=== PATIENT | male | born 1945 | race Caucasian/White ===

== ENCOUNTER 2018-01-17 14:50 | Emergency (ER) | payer OTHER, MEDICARE ==
[2018-01-17 16:25] LABS: ABSOLUTE EOSINOPHILS # (AUTO) 0.4 10^3/uL (0.0-0.6); ABSOLUTE LYMPHOCYTES (AUTO) 1.4 10^3/uL (0.5-4.7); ABSOLUTE MONOCYTES (AUTO) 0.4 10^3/uL (0.1-1.4); BASOPHILS % (AUTO) 0.6 % (0-2); EOSINOPHILS % (AUTO) 6.8 % (0-6); HEMATOCRIT 41.4 % (37.9-51.0); HEMOGLOBIN 13.9 g/dL (13.5-17.0); LYMPHOCYTES % (AUTO) 26.3 % (13-45); MEAN CORPUSCULAR HEMOGLOBIN 29.3 pg (27.0-33.4); MEAN CORPUSCULAR HGB CONC 33.5 g/dL (32.0-36.0); MEAN CORPUSCULAR VOLUME 87 fl (80-97); MONOCYTES % (AUTO) 8.3 % (3-13); PLATELET COUNT 273 10^3/uL (150-450); RED BLOOD COUNT 4.74 10^6/uL (4.35-5.55); RED CELL DISTRIBUTION WIDTH 13.5 % (11.5-14.0); TOTAL CELLS COUNTED % (AUTO) 100 %; WHITE BLOOD COUNT 5.1 10^3/uL (4.0-10.5)
[2018-01-17 16:44] LABS: APPEARANCE,URINE CLEAR; BILIRUBIN,URINE NEGATIVE (NEGATIVE); COLOR,URINE YELLOW; GLUCOSE, URINE NEGATIVE (NEGATIVE); KETONES,URINE NEGATIVE (NEGATIVE); LEUKOCYTE ESTERASE,URINE NEGATIVE (NEGATIVE); NITRITE,URINE NEGATIVE (NEGATIVE); PROTEIN,URINE 30 mg/dL (NEGATIVE); URINE SPECIFIC GRAVITY 1.031; UROBILINOGEN,URINE NEGATIVE mg/dL (<2.0)
[2018-01-17 16:49] LABS: ALANINE AMINOTRANSFERASE 40 U/L (21-72); ALBUMIN 4.5 g/dL (3.5-5.0); ALKALINE PHOSPHATASE 79 U/L (38-126); ANION GAP 12 (5-19); ASPARTATE AMINO TRANSFERASE 32 U/L (17-59); BILIRUBIN,DIRECT 0.3 mg/dL (0.0-0.4); BILIRUBIN,TOTAL 0.3 mg/dL (0.2-1.3); BLOOD UREA NITROGEN 34 mg/dL (7-20); CALCIUM 9.5 mg/dL (8.4-10.2); CARBON DIOXIDE 26 mmol/L (22-30); CHLORIDE 107 mmol/L (98-107); GLUCOSE 136 mg/dL (75-110); LIPASE 121.4 U/L (23-300); POTASSIUM 4.6 mmol/L (3.6-5.0); SODIUM 144.6 mmol/L (137-145); TOTAL PROTEIN 7.2 g/dL (6.3-8.2)
--- NOTE | 2018-01-17 18:36 | ER Document Report ---
ED GI/ - General Mode of Arrival: Ambulatory Information source: Patient TRAVEL OUTSIDE OF THE [place] IN LAST 30 DAYS: No <LULY FLOWERS - Last Filed: 01/17/18 18:37> <MALATHI CAMPO - Last Filed: 01/17/18 20:33> - General Chief Complaint: Nausea/Vomiting Stated Complaint: NAUSEA,VOMITING Time Seen by Provider: 01/17/18 15:10 Notes: Patient is a 72-year-old male who presents to the ER today for many months, up to 6 months, of lower abdominal pain. Patient states that today he started feeling "a pulsing sensation for a few minutes" and his abdomen in the middle and called the [facility], his primary care provider, who stated "go to the ER and get it checked out." Patient thinks that he may have a hernia in the middle of his abdomen because whenever he sits up he gets a bulging in the middle of his abdomen above his bellybutton. He is also had this for a long time. He has been told before that it was a weakness in his abdominal muscle, also have's been told before that it may be a hernia. He denies any nausea, vomiting, diarrhea, fever, chills or other symptoms. (LULY FLOWERS) - Related Data Allergies/Adverse Reactions: anesthesia medicine unknown Allergy (Severe, Uncoded 12/11/14 10:18) stopped breathing Past Medical History - General Information source: Patient - Social History Smoking Status: Former Smoker Drug Abuse: None Family History: Reviewed & Not Pertinent Patient has suicidal ideation: No Patient has homicidal ideation: No - Past Medical History Cardiac Medical History: Reports: Hx Coronary Artery Disease, Hx Hypercholesterolemia, Hx Hypertension - HIGH CHOL Denies: Hx Heart Attack Pulmonary Medical History: Reports: Hx Asthma, Hx Pneumonia - "WALKING" Denies: Hx Bronchitis, Hx COPD Neurological Medical History: Denies: Hx Cerebrovascular Accident, Hx Seizures Endocrine Medical History: Reports: Hx Diabetes Mellitus Type 1, Hx Diabetes Mellitus Type 2 Renal/ Medical History: Denies: Hx Peritoneal Dialysis GI Medical History: Reports: Hx Gastroesophageal Reflux Disease Musculoskeltal Medical History: Reports Hx Arthritis Psychiatric Medical History: Reports: Hx Anxiety, Hx Depression, Hx Post Traumatic Stress Disorder Past Surgical History: Reports: Hx Adenoidectomy, Hx Appendectomy, Hx Tonsillectomy - Immunizations Hx Diphtheria, Pertussis, Tetanus Vaccination: No Hx Pneumococcal Vaccination: 07/15/14 <KRISTIELULY - Last Filed: 01/17/18 18:37> Review of Systems - Review of Systems Constitutional: No symptoms reported EENT: No symptoms reported Cardiovascular: See HPI Respiratory: No symptoms reported Gastrointestinal: See HPI Genitourinary: No symptoms reported Male Genitourinary: No symptoms reported Musculoskeletal: No symptoms reported Skin: No symptoms reported Hematologic/Lymphatic: No symptoms reported Neurological/Psychological: No symptoms reported <LULY FLOWERS - Last Filed: 01/17/18 18:37> Physical Exam <NAVIN FLOWERSANDA - Last Filed: 01/17/18 18:37> <MALATHI CAMPO - Last Filed: 01/17/18 20:33> - Vital signs Vitals: Temp Pulse Resp BP Pulse Ox 98.7 F 53 L 16 143/79 H 98 01/17/18 14:56 01/17/18 14:56 01/17/18 14:56 01/17/18 14:56 01/17/18 14:56 - Notes Notes: PHYSICAL EXAMINATION: GENERAL: Well-appearing and in no acute distress. HEAD: Atraumatic, normocephalic. EYES: Pupils equal round and reactive to light, extraocular movements intact, sclera anicteric, conjunctiva are normal. NECK: Normal range of motion, supple without lymphadenopathy LUNGS: CTAB and equal. No wheezes rales or rhonchi. HEART: Regular rate and rhythm without murmurs ABDOMEN: Soft, rectus sheath bulging on flexion only, no tenderness. No guarding , no rebound BACK: no vertebral tenderness, normal ROM GI/: no CVA tenderness EXTREMITIES: Normal range of motion, no pitting edema. No cyanosis. NEUROLOGICAL: Cranial nerves grossly intact. Normal sensory/motor exams. PSYCH: Normal mood, normal affect. SKIN: Warm, Dry, normal turgor, no rashes or lesions noted (LULY FLOWERS) Course - Laboratory Result Diagrams: 01/17/18 16:00 01/17/18 16:00 <LULY FLOWERS - Last Filed: 01/17/18 18:37> - Laboratory Result Diagrams: 01/17/18 16:00 01/17/18 16:00 - Diagnostic Test Radiology reviewed: Image reviewed, Reports reviewed - No acute abnormality of the abdomen and pelvis. Fatty infiltration of the liver, left renal cyst. <MALATHI CAMPO - Last Filed: 01/17/18 20:33> - Re-evaluation Re-evalutation: 01/17/18 20:31 The patient is nontoxic appearing with stable vitals. Patient has unremarkable lab work for significant finding. He had a CT of the abdomen and pelvis which shows fatty infiltration of the liver with a left renal cyst, no acute findings per the radiologist. This point the patient can be discharged home with [facility]. Follow -up sooner for worsening pain, high fever, persistent vomiting, or for any further concerns. The patient is noted to have elevated blood pressure during today's emergency department visit. The patient was informed of this finding. The patient was instructed that this may be related to pre-hypertension and requires further evaluation with a primary care provider. The patient has no hypertensive symptoms at this time. The patient's emergency department workup and current diagnosis were explained to the patient and or family. Follow-up instructions were provided. Medications if prescribed were discussed. Instructions for when to return to the emergency department including specific worrisome symptoms were discussed with the patient and/or family. (MALATHI CAMPO) - Vital Signs Vital signs: Temp Pulse Resp BP Pulse Ox 98.7 F 53 L 16 143/79 H 98 01/17/18 14:56 01/17/18 14:56 01/17/18 14:56 01/17/18 14:56 01/17/18 14:56 - Laboratory Laboratory results interpreted by ok: 01/17/18 01/17/18 01/17/18 16:00 16:00 16:24 Eosinophils % 6.8 H BUN 34 H Glucose 136 H Urine Protein 30 H Discharge <LULY FLOWERS - Last Filed: 01/17/18 18:37> <MALATHI CAMPO - Last Filed: 01/17/18 20:33> - Discharge Clinical Impression: Abdominal pain Qualifiers: Abdominal location: unspecified location Qualified Code(s): R10.9 - Unspecified abdominal pain Condition: Stable Disposition: HOME, SELF-CARE Instructions: Abdominal Pain ([facility]) Additional Instructions: [facility]. Follow-up sooner for worsening symptoms, high fever, persistent vomiting, or for any further concerns. Your blood pressure was elevated during today's visit. Have this rechecked with your doctor. Forms: Elevated Blood Pressure, Smoking Cessation Education Referrals: [facility] [Provider Group] - Follow up as needed
--- NOTE | 2018-01-17 20:24 | RADIOLOGY REPORT (SQ) ---
EXAM DESCRIPTION: CT ABD/PELVIS WITH IV ONLY COMPLETED DATE/TIME: 01/17/2018 7:23 pm REASON FOR STUDY: hernia? COMPARISON: None. TECHNIQUE: CT scan of the abdomen and pelvis performed using helical scanning technique with dynamic intravenous contrast injection. No oral contrast. Images reviewed with lung, soft tissue, and bone windows. Reconstructed coronal and sagittal MPR images reviewed. Delayed images for evaluation of the urinary system also acquired. All images stored on PACS. All CT scanners at this facility use dose modulation, iterative reconstruction, and/or weight based d osing when appropriate to reduce radiation dose to as low as reasonably achievable (ALARA). [facility]: Dose Right [facility]: CareDose [facility]: Dose Right [facility]: Teradose 4D [facility]: Sportistic CONTRAST TYPE AND DOSE: contrast/concentration: Isovue 370.00 mg/ml; Total Contrast Delivered: 100.0 ml; Total Saline Delivered: 40.0 ml RENAL FUNCTION: BUN 34 creatinine 0.99. RADIATION DOSE: CT Rad equipment meets quality standard of care and radiation dose reduction techniq ues were employed. CTDIvol: 17.0 - 18.8 mGy. DLP: 2006 mGy-cm.. LIMITATIONS: None. FINDINGS: LOWER CHEST: No significant findings. No nodules or infiltrates. LIVER: Hepatomegaly. Diffuse fatty infiltration. No masses. No dilated ducts. SPLEEN: Normal size. No focal lesions. PANCREAS: No masses. No significant calcifications. No adjacent inflammation or peripancreatic fluid collections. Pancreatic duct not dilated. GALLBLADDER: No identified stones by CT criteria. No inflammatory changes to suggest cholecystitis. ADRENAL GLANDS: No significant masses or asymmetry. RIGHT KIDNEY AND URETER: No solid masses. No significant calcifications. No hydronephrosis or hyd roureter. LEFT KIDNEY AND URETER: Cortical cysts. No solid masses. No significant calcifications. No hydro nephrosis or hydroureter. AORTA AND VESSELS: No aneurysm. No dissection. Renal arteries, SMA, celiac without stenosis. RETROPERITONEUM: No retroperitoneal adenopathy, hemorrhage or masses. BOWEL AND PERITONEAL CAVITY: No masses or inflammatory changes. No free fluid or peritoneal masses. APPENDIX: Normal. PELVIS: No mass. No free fluid. Normal bladder. ABDOMINAL WALL: No masses. No hernias. BONES: No significant or acute findings. OTHER: No other significant finding. IMPRESSION: 1. HEPATOMEGALY. DIFFUSE FATTY INFILTRATION OF THE LIVER. 2. CORTICAL CYST IN THE LEFT KIDNEY. 3. NO OTHER SIGNIFICANT OR ACUTE FINDING IN THE ABDOMEN OR PELVIS ON CT SCAN WITH IV CONTRAST. TECHNICAL DOCUMENTATION: JOB ID: [id number] Quality ID # [id number]: Final reports with documentation of one or more dose reduction techniques (e.g., Au tomated exposure control, adjustment of the mA and/or kV according to patient size, use of iterative reconstruction technique) 2010 [employer]- All Rights Reserved Reading location - IP/workstation name: [email or web address]
[2018-01-17 20:57] VITALS: BP 143/74
== END 2018-01-17 21:11 | disposition home or self-care (01) ==
LOC: ER 14:50
DX: R11.2 Nausea with vomiting, unspecified (principal); I25.10 Atherosclerotic heart disease of native coronary artery without angina pectoris; E78.00 Pure hypercholesterolemia, unspecified; I10 Essential (primary) hypertension; E11.9 Type 2 diabetes mellitus without complications
CPT/HCPCS: 36415; 74177; 80053; 81001; 83690; 85025; 99284

== ENCOUNTER → 2018-10-10 | Outpatient (CLI) | payer MEDICARE, OTHER ==
--- NOTE | 2018-10-10 13:05 | RADIOLOGY REPORT (SQ) ---
EXAM DESCRIPTION: CHEST PA/LATERAL COMPLETED DATE/TIME: 10/10/2018 12:58 pm REASON FOR STUDY: PRE-OP COMPARISON: None. TECHNIQUE: Frontal and lateral radiographic views of the chest acquired. NUMBER OF VIEWS: Two view. LIMITATIONS: None. FINDINGS: LUNGS AND PLEURA: No opacities, masses or pneumothorax. No pleural effusion. MEDIASTINUM AND HILAR STRUCTURES: No masses or contour abnormalities. HEART AND VASCULAR STRUCTURES: Heart normal size. No evidence for failure. BONES: No acute findings. HARDWARE: None in the chest. OTHER: No other significant finding. IMPRESSION: NO SIGNIFICANT RADIOGRAPHIC FINDING IN THE CHEST. TECHNICAL DOCUMENTATION: JOB ID: [id number] [employer]- All Rights Reserved Reading location - IP/workstation name: [email or web address]
--- NOTE | 2018-10-10 13:39 | EKG REPORT ---
SEVERITY:- BORDERLINE ECG - SINUS RHYTHM ATRIAL PREMATURE COMPLEX BORDERLINE T ABNORMALITIES, INFERIOR LEADS : Confirmed by: Mike Allred MD 10-Oct-2018 13:38:52
[2018-10-10 13:44] LABS: APPEARANCE,URINE SLIGHTLY-CLOUDY; BILIRUBIN,URINE NEGATIVE (NEGATIVE); COLOR,URINE YELLOW; GLUCOSE, URINE NEGATIVE (NEGATIVE); KETONES,URINE NEGATIVE (NEGATIVE); LEUKOCYTE ESTERASE,URINE NEGATIVE (NEGATIVE); NITRITE,URINE NEGATIVE (NEGATIVE); PROTEIN,URINE NEGATIVE (NEGATIVE); URINE SPECIFIC GRAVITY 1.014; UROBILINOGEN,URINE NEGATIVE mg/dL (<2.0)
[2018-10-10 13:45] LABS: ABSOLUTE EOSINOPHILS # (AUTO) 0.5 10^3/uL (0.0-0.6); ABSOLUTE LYMPHOCYTES (AUTO) 1.2 10^3/uL (0.5-4.7); ABSOLUTE MONOCYTES (AUTO) 0.5 10^3/uL (0.1-1.4); ABSOLUTE NEUT (AUTO) 4.7 10^3/uL (1.7-8.2); BASOPHILS % (AUTO) 0.4 % (0-2); EOSINOPHILS % (AUTO) 6.9 % (0-6); HEMATOCRIT 38.5 % (37.9-51.0); HEMOGLOBIN 13.2 g/dL (13.5-17.0); LYMPHOCYTES % (AUTO) 17.9 % (13-45); MEAN CORPUSCULAR HEMOGLOBIN 29.3 pg (27.0-33.4); MEAN CORPUSCULAR HGB CONC 34.3 g/dL (32.0-36.0); MEAN CORPUSCULAR VOLUME 86 fl (80-97); MONOCYTES % (AUTO) 7.6 % (3-13); PLATELET COUNT 278 10^3/uL (150-450); RED CELL DISTRIBUTION WIDTH 14.6 % (11.5-14.0); SEGMENTED NEUTROPHILS % (AUTO) 67.2 % (42-78); TOTAL CELLS COUNTED % (AUTO) 100 %; WHITE BLOOD COUNT 6.9 10^3/uL (4.0-10.5)
[2018-10-10 13:58] LABS: ANION GAP 15 (5-19); BLOOD UREA NITROGEN 35 mg/dL (7-20); CALCIUM 9.6 mg/dL (8.4-10.2); CARBON DIOXIDE 25 mmol/L (22-30); CHLORIDE 104 mmol/L (98-107); GLUCOSE 173 mg/dL (75-110); POTASSIUM 4.9 mmol/L (3.6-5.0); SODIUM 143.6 mmol/L (137-145)
== END ==
LOC: OD 12:28
PROVIDERS: ATTEND Orthopaedic Surgery
DX: Z01.810 Encounter for preprocedural cardiovascular examination (principal); Z01.812 Encounter for preprocedural laboratory examination; Z01.818 Encounter for other preprocedural examination; E11.9 Type 2 diabetes mellitus without complications
CPT/HCPCS: 36415; 71046; 80048; 81001; 83036; 85025; 93005; 93010

== ENCOUNTER → 2018-10-25 | Outpatient (CLI) | payer MEDICARE ==
[~2018-10-25] MED LIST: REGADENOSON INJ 0.4 MG/5 ML DISP.SYRIN IV ONE
--- NOTE | 2018-10-26 22:51 | XCELERA REPORT ---
[address] [address] Transthoracic Echocardiogram Report Name: LUCIO JOHNSON Age: 73 yrs Gender: Male : 1945 Patient Status: Preadmit Patient Location: RAD Study Date: 10/25/2018 09:41 AM Height: 71 in Weight: 237 lb BSA: 2.3 m2 Procedure: A two-dimensional transthoracic echocardiogram with color flow and Doppler was performed. Study Quality: Fair. Reason For Study: SOB History: ORTNESS OF BREATH / PRE-OP. Ordering Physician: JAZZMINE MORALES Performed By: Mundo Haynes Interpretation Summary The left ventricle is normal in size. There is normal left ventricular wall thickness. LV EF is 65% Left ventricular systolic function is normal. Doppler measurements suggest normal left ventricular diastolic function There is no thrombus. There is no ventricular septal defect visualized. The right ventricle is normal size. There is mild right ventricular hypertrophy. The right ventricular systolic function is normal. The right atrium is normal. The left atrial size is normal. The interatrial septum is intact with no evidence for an atrial septal defect. There is no evidence of mitral valve prolapse. There is no vegetation seen on the mitral valve. There is no mitral valve stenosis. There is a trace amount of mitral regurgitation There is no aortic valvular vegetation. There is mild aortic stenosis There is a peak gradient of 22 mm of Hg. There is no LVOT obstruction. No hemodynamically significant valvular aortic stenosis. There is a trace to mild amount of aortic regurgitation There is no tricuspid stenosis. There is a mild amount of tricuspid regurgitation There is moderate pulmonary hypertension by echo rvsp IS 48 TO 53 MM OF hG , WITH ra MEAN OF 5 TO 10. There is no pulmonic valvular regurgitation. The aortic root is normal size. The inferior vena cava appeared normal and decreased > 50% with respiration (RAP 5-10 mmHg) There is no pericardial effusion. MMode/2D Measurements & Calculations RVDd: 3.3 cm LVIDd: 5.4 cm FS: 45.1 % Ao root diam: 3.0 cm IVSd: 0.96 cm LVIDs: 3.0 cm EDV(Teich): 142.4 ml Ao root area: 7.2 cm2 LVPWd: 1.1 cm ESV(Teich): 34.2 ml LA dimension: 3.1 cm EF(Teich): 76.0 % Doppler Measurements & Calculations MV E max eloisa: MV P1/2t max eloisa: Ao V2 max: AI max eloisa: 82.5 cm/sec 89.9 cm/sec 232.7 cm/sec 473.0 cm/sec MV A max eloisa: MV P1/2t: 103.1 msec Ao max PG: AI max P.7 cm/sec MVA(P1/2t): 2.1 cm2 21.7 mmHg 89.5 mmHg MV E/A: 1.2 MV dec slope: AI dec slope: 225.0 cm/sec2 255.4 cm/sec2 AI P1/2t: MV dec time: 615.7 msec 0.23 sec LV V1 max PG: PA V2 max: TR max eloisa: AV P1/2t-pr_phl: 6.1 mmHg 97.7 cm/sec 327.3 cm/sec 616.0 msec LV V1 max: PA max P.8 mmHg TR max P.4 cm/sec 42.8 mmHg LV dP/dt: 1818 mmHg/s MV P1/2t-pr_phl: 103.1 msec Left Ventricle The left ventricle is normal in size. There is normal left ventricular wall thickness. LV EF is 65%. Left ventricular systolic function is normal. Doppler measurements suggest normal left ventricular diastolic function. The left ventricular wall motion is normal. There is no thrombus. There is no ventricular septal defect visualized. Right Ventricle The right ventricle is normal size. There is mild right ventricular hypertrophy. The right ventricular systolic function is normal. Atria The right atrium is normal. The left atrial size is normal. The interatrial septum is intact with no evidence for an atrial septal defect. Mitral Valve There is no evidence of mitral valve prolapse. There is no vegetation seen on the mitral valve. There is no mitral valve stenosis. There is a trace amount of mitral regurgitation. Aortic Valve There is no aortic valvular vegetation. There is mild aortic stenosis. There is a peak gradient of 22 mm of Hg. There is no LVOT obstruction. No hemodynamically significant valvular aortic stenosis. There is a trace to mild amount of aortic regurgitation. Tricuspid Valve There is no tricuspid stenosis. There is a mild amount of tricuspid regurgitation. There is moderate pulmonary hypertension by echo. rvsp IS 48 TO 53 MM OF hG , WITH ra MEAN OF 5 TO 10. Pulmonic Valve There is no pulmonic valvular stenosis. There is no pulmonic valvular regurgitation. Great Vessels The aortic root is normal size. The inferior vena cava appeared normal and decreased > 50% with respiration (RAP 5-10 mmHg). Effusions There is no pericardial effusion. : JAZZMINE MORALES > Jazzmine Morales
--- NOTE | 2018-10-26 23:04 | DRAGON STRESS TEST REPORT ---
Intravenous Lexiscan Cardiolite stress test using single photon emmision computerized tomography. Date of procedure: 10/25/2018.Ordering Provider: Dr. Jazzmine Gomez. Patient's status: Out Patient. Indication: Shortness of breath, and preoperative cardiac risk assessment. Coronary risk factors: Age, diabetes mellitus, hypertension, and dyslipidemia. Resting EKG: Sinus Rhythm. Possible old septal UT versus normal Q's in V1 V2 leads. Nonspecific ST-T changes lateral leads. Stress EKG: No changes of ischemia. The patient had no chest pain or discomfort, and there were no arrhythmias seen. There is no increased shortness of breath or wheezing. Reason for termination: Protocol. Conclusions: Normal EKG and hemodynamic response to IV Lexiscan. Nuclear data: At rest the patient was given 14.61 millicuries of technetium 99m sestamibi injected intravenously. As per protocol rest non gated SPECT images were obtained. Subsequently the patient was given intravenous Lexiscan at a dose of 0.4 mg in 5 mL intravenously, followed by flush with normal saline. Subsequently the stress dose of 43.0 millicuries of technetium 99m sestamibi was injected intravenously. As per protocol stress gated images were obtained. Nuclear interpretation: Review of images showed that this is a very poor quality study, and very difficult to interpret inferior wall perfusion due to severe liver and bowel contamination artifact of the inferior wall, which is more pronounced in the stress images compared to rest images. Probably all segments of the myocardium had normal perfusion at rest, and normal perfusion post stress with IV Lexiscan. But cannot definitely exclude mild scar in the inferior wall with mild reversible ischemia. But still my opinion is that there is no ischemia or UT or scar, and inferior wall changes seen are due to contamination artifact as mentioned above. Probably all segments of the myocardium had normal motion, contraction, and thickening by gated study. T. I D. ratio was normal at 1.15. There is no transient ischemic calcification of the left ventricle. Computer read rest, and stress left ventricular ejection fraction were 52 %, and 51 %, respectively. Visually both the stress and rest ejection fractions were normal, and greater than 55%. Conclusion: 1. There is probably no scintigraphic evidence of Lexiscan induced myocardial ischemia. 2. There is probably no scintigraphic evidence of myocardial infarction/scar. Recommend echo for wall motion information, and for accurate LV ejection fraction. Correlate clinically. Aggressive risk factor modification, and treatment of comorbidities. MTDD
== END ==
LOC: RAD 07:01
PROVIDERS: ATTEND Specialist
DX: R06.02 Shortness of breath (principal)
CPT/HCPCS: 93306; 93017; 78452; A9500; J2785; Q9969

== ENCOUNTER 2018-10-30 05:40 | Inpatient (IN) | payer OTHER, MEDICARE ==
[~2018-10-30 05:40] MED LIST changes: +BUPIVACAINE INJ/PF LIPOSOME/PF 266 MG/20 ML SDV IJ PRN; +CEFAZOLIN INJ 1 GM VIAL IV PRN; +CEFAZOLIN INJ 1 GM VIAL ONE; +IBUPROFEN 800 MG/NS 250 ML IV PRN; +LACTATED RINGERS 1000 ML IV PRN; +LANSOPRAZOLE 15 MG TAB.RAP.DR ONE; +LANSOPRAZOLE 15 MG TAB.RAP.DR PO PRN; +LIDOCAINE 0.5% INJ-PF (5 MG/ML) 50 ML SDV SUBCUT PRN; +OXYCODONE HCL SR 10 MG TABLET PO ONE; +OXYCODONE HCL SR 10 MG TABLET PO PRN; -REGADENOSON INJ 0.4 MG/5 ML DISP.SYRIN IV ONE; +VANCOMYCIN HCL 1,000 MG in DEXTROSE 5%-WATER 250 ML IV SCH
[2018-10-30] MEDS ORDERED: LIDOCAINE 2% INJ-PF (20 MG/ML) 10 ML AMPUL ONE (06:32)
[2018-10-30] MEDS ORDERED: ONDANSETRON HCL INJ/PF 4 MG/2 ML SDV ONE (06:32)
[2018-10-30] MEDS ORDERED: ACETAMINOPHEN 1,000 MG/100 ML RTUPB IV ONE (06:32)
[2018-10-30] MEDS ORDERED: PROPOFOL INJ 200 MG/20 ML VIAL IV ONE (06:32)
[2018-10-30] MEDS ORDERED: DEXAMETHASONE SOD PHOSPHATE INJ 4 MG/1 ML VIAL ONE (06:32)
[2018-10-30] MEDS ORDERED: MIDAZOLAM 2 MG/2 ML INJ ONE (06:32)
[2018-10-30] MEDS ORDERED: FENTANYL CITRATE INJ/PF 100 MCG/2 ML AMPUL ONE (06:32)
[2018-10-30] MEDS ORDERED: BUPIVACAINE HCL/DEX-WATER/PF 15 MG/2 ML AMPULE ONE (06:34)
[2018-10-30 06:51] LABS: POTASSIUM 4.7 mmol/L (3.6-5.0)
[2018-10-30] MEDS ORDERED: THROMBIN (BOVINE) TOPICAL 20000 UNIT VIAL ONE (07:10)
[2018-10-30] MEDS ORDERED: BUPIVACAINE HCL 0.25% /EPINEPHRINE INJ/PF 30 ML SDV ONE (07:11)
[2018-10-30] MEDS ORDERED: THROMBIN (BOVINE) TOPICAL 5000 UNIT VIAL ONE (07:11)
[2018-10-30] MEDS ORDERED: MORPHINE SULFATE 10 MG/ML INJ IV PRN ×5 (07:55→08:44)
[2018-10-30] MEDS ORDERED: MEPERIDINE HCL/PF INJ 25 MG/1 ML DISP.SYRIN IV PRN (07:55)
[2018-10-30] MEDS ORDERED: DIPHENHYDRAMINE HCL 50 MG/ML VIAL IV PRN ×2 (07:55→08:44)
[2018-10-30] MEDS ORDERED: PROMETHAZINE HCL INJ 25 MG/1 ML VIAL IV PRN ×2 (07:55)
[2018-10-30] MEDS ORDERED: FENTANYL CITRATE INJ/PF 100 MCG/2 ML AMPUL IV PRN ×3 (07:55)
[2018-10-30] MEDS ORDERED: ONDANSETRON HCL INJ/PF 4 MG/2 ML SDV IV PRN ×2 (07:55→08:44)
--- NOTE | 2018-10-30 08:42 | Operative Report ---
Operative Report DATE OF SURGERY: 10/30/18 PREOPERATIVE DIAGNOSIS: Right knee arthritis OPERATION: Right knee arthroplasty SURGEON: [place] ANESTHESIA: Spinal TISSUE REMOVED OR ALTERED: Bone to pathology ESTIMATED BLOOD LOSS: 100 PROCEDURE: Implants used: Femur: Gregg triathlon size 6 CR femur Tibia: 6 tibia Tibial liner: 11 mm CS insert Patella: 38 mm oval patella Procedure with the patient supine on the operating table the right the limb is prepped and draped in a sterile fashion. The limb was elevated for exsanguination and the tourniquet inflated to 280 torr. A standard midline median parapatellar approach the knee is taken. Access is gained to the femoral canal through the intercondylar notch. Intramedullary alignment instrumentation used to resect 10 mm of distal femur in 5 of valgus. Sizing guide indicated a size 6 femur. Appropriate cutting jig is then used to fashion anterior posterior and chamfer cuts. A trial reduction femurs performed and this is judged to be adequate. Attention was next turned to the tibia. Using an extra medullary alignment system 9 millimeters was resected off the lateral tibial plateau. This is sized to a size 6 tibia. A trial reduction was now performed with a 6 femur and a 6 tibia using a 11 millimeters spacer. It is full extension and central patellofemoral tracking. The articular surface the patella was next resected using an oscillating saw. All trial implants were removed. Polymethylmethacrylate is mixed and used to cement the above implants in place. On adequate curing the cement excess cement was removed the tourniquet was deflated hemostasis obtained the wound is then closed in layers using interrupted Vicryl followed by agnes. A sterile compressive dressing was applied and the patient returned to recovery room in satisfactory condition.
[2018-10-30] MEDS ORDERED: ACETAMINOPHEN 325 MG TABLET PO PRN (08:44)
[2018-10-30] MEDS ORDERED: RINGERS SOLUTION,LACTATED 1,000 ML IV PRN (08:44)
[2018-10-30] MEDS ORDERED: ZOLPIDEM TARTRATE 5 MG TABLET PO PRN (08:44)
[2018-10-30] MEDS ORDERED: MAG HYDROX/AL HYDROX/SIMETH SUSP 30 ML UDCUP PO PRN (08:44)
[2018-10-30] MEDS ORDERED: ONDANSETRON 4 MG TAB.RAPDIS PO PRN (08:44)
[2018-10-30] MEDS ORDERED: TRANEXAMIC ACID INJ/PF 1,000 MG/10 ML SDV IV ONE ×2 (09:18→10:00)
[2018-10-30] MEDS ORDERED: DEXTROSE 50%-WATER SYRINGE 25 GM/50 ML DOSE IV PRN (09:41)
[2018-10-30] MEDS ORDERED: DEXTROSE 50%-WATER SYRINGE 12.5 GM/25 ML DOSE IV PRN (09:41)
[2018-10-30] MEDS ORDERED: GLUCAGON,HUMAN RECOMB 1 MG INJ IM PRN (09:41)
[2018-10-30] MEDS ORDERED: DEXTROSE 40% GEL 15 GM TUBE PO PRN (09:41)
[2018-10-30] MEDS ORDERED: DEXTROSE 40% GEL 15 GM TUBE X 2 PO PRN (09:41)
--- NOTE | 2018-10-30 09:58 | RADIOLOGY REPORT (SQ) ---
EXAM DESCRIPTION: KNEE RIGHT 2 VIEWS COMPLETED DATE/TIME: 10/30/2018 9:36 am REASON FOR STUDY: Post OP -Long Cassette in PACU M17.11 UNILATERAL PRIMARY OSTEOARTHRITIS, RIGHT KN EE COMPARISON: None. NUMBER OF VIEWS: Two views portable right knee TECHNIQUE: Digital radiographic images of the right knee post-procedure. LIMITATIONS: None. FINDINGS: BONES: No worrisome or unexpected findings post-procedure. DEVICE: Right total knee replacement with patellar resurfacing SOFT TISSUES: No worrisome findings. Expected postoperative soft tissue changes. IMPRESSION: SATISFACTORY POSTOPERATIVE RIGHT KNEE. TECHNICAL DOCUMENTATION: JOB ID: [id number] [employer]- All Rights Reserved Reading location - IP/workstation name: [email or web address]
[2018-10-30] MEDS ORDERED: MULTIVIT WITH IRON MINERALS PO SCH (10:00)
[2018-10-30] MEDS ORDERED: OMEPRAZOLE 20 MG PO SCH (10:00)
[2018-10-30] MEDS ORDERED: MODAFINIL 200 MG PO SCH (10:00)
[2018-10-30] MEDS ORDERED: ATORVASTATIN CALCIUM 10 MG TABLET PO SCH (10:00)
[2018-10-30] MEDS: ALLOPURINOL 100 MG TABLET PO SCH (10:44)
[2018-10-30] MEDS: TAMSULOSIN HCL 0.4 MG CAP.SR.24H PO SCH (10:44)
[2018-10-30] MEDS: SENNOSIDES/DOCUSATE 8.6-50 MG 1 EACH TABLET PO SCH ×2 (10:44→17:54)
[2018-10-30] MEDS: ASPIRIN 81 MG TABLET, ENT COATED PO SCH (10:44)
[2018-10-30] MEDS: PRENATAL VITAMIN W DHA CAPSULE PO SCH (10:44)
[2018-10-30] MEDS: OXYCODONE HCL SR 10 MG TABLET PO SCH ×2 (10:45→21:17)
[2018-10-30] MEDS: FUROSEMIDE 20 MG TABLET PO SCH (10:45)
[2018-10-30] MEDS: AMLODIPINE BESYLATE 10 MG TABLET PO SCH (10:46)
[2018-10-30] MEDS: DONEPEZIL HCL 5 MG TABLET PO SCH (10:47)
[2018-10-30] MEDS: FINASTERIDE 5 MG TABLET PO SCH (10:48)
[2018-10-30] MEDS: MODAFINIL 100 MG TABLET PO SCH (12:32)
[2018-10-30] MEDS: LISINOPRIL 10 MG TABLET PO SCH (12:32)
[2018-10-30] MEDS: INSULIN LISPRO 100 UNIT/ML 3 ML VIAL SUBCUT PRN ×3 (12:33→22:00)
[2018-10-30] MEDS ORDERED: PHENYLEPHRINE HCL INJ/PF 10 MG/1 ML SDV ONE (13:52)
[2018-10-30] MEDS: IBUPROFEN 800 MG in NORMAL SALINE 250 ML IV SCH ×2 (15:01→21:18)
[2018-10-30] MEDS: GABAPENTIN 400 MG CAPSULE PO SCH ×2 (15:01→21:18)
[2018-10-30] MEDS: OXYCODONE HCL IR 5 MG TABLET PO PRN (17:54)
[2018-10-30] MEDS ORDERED: VANCOMYCIN HCL 1,000 MG in DEXTROSE 5%-WATER 250 ML IV ONE (21:00)
[2018-10-30] MEDS ORDERED: GEMFIBROZIL 600 MG TABLET PO SCH (22:00)
[2018-10-31] MEDS: IBUPROFEN 800 MG in NORMAL SALINE 250 ML IV SCH ×2 (05:17→13:39)
[2018-10-31] MEDS: GABAPENTIN 400 MG CAPSULE PO SCH ×2 (05:18→13:36)
[2018-10-31] MEDS ORDERED: LANSOPRAZOLE 30 MG TAB.RAP.DR PO SCH (06:00)
[2018-10-31 07:17] LABS: HEMATOCRIT 31.3 % (37.9-51.0); HEMOGLOBIN 10.5 g/dL (13.5-17.0); MEAN CORPUSCULAR HEMOGLOBIN 28.7 pg (27.0-33.4); MEAN CORPUSCULAR HGB CONC 33.4 g/dL (32.0-36.0); MEAN CORPUSCULAR VOLUME 86 fl (80-97); PLATELET COUNT 290 10^3/uL (150-450); RED BLOOD COUNT 3.64 10^6/uL (4.35-5.55); RED CELL DISTRIBUTION WIDTH 14.5 % (11.5-14.0); WHITE BLOOD COUNT 12.2 10^3/uL (4.0-10.5)
--- NOTE | 2018-10-31 07:40 | PDOC DISCHARGE SUMMARY ---
General - Admit/Disc Date/PCP Admission Date/Primary Care Provider: 10/30/18 05:40 KOBE RALPH Discharge Date: 10/31/18 - Discharge Diagnosis (1) Arthritis of right knee Is this a current diagnosis for this admission?: Yes - Additional Information Resuscitation Status: Full Code Home Medications: Aspirin [Aspirin EC] 81 mg PO DAILY 03/28/13 Atorvastatin Calcium [Lipitor 10 mg Tablet] 20 mg PO DAILY 03/28/13 Furosemide [Lasix 20 mg Tablet] 20 mg PO DAILY 03/28/13 Gabapentin [Neurontin 400 mg Capsule] 400 mg PO TID 03/28/13 Loratadine [Loratadine Allergy] 10 mg PO DAILY 03/28/13 Amlodipine Besylate 10 mg PO DAILY 07/10/13 Clotrimazole 1% Topical [Lotrimin 1% Topical Solution] 1 applic TP ASDIR PRN Ferrous Fumarate [Iron] 65 mg PO DAILY 07/10/13 Metformin HCl [Glucophage 500 Mg Tablet] 1,000 mg PO BID 07/10/13 Tamsulosin HCl 0.4 mg PO QHS 07/10/13 Fluticasone Propionate [Flonase Nasal Blairs 50 Mcg/Blairs 16 gm] 2 sprays NASL DAILY 12/10/14 Allopurinol [Zyloprim 100 mg Tablet] 100 mg PO DAILY 10/19/18 Cyanocobalamin (Vitamin B-12) [Vitamin B12] 1,000 mcg PO DAILY 10/19/18 Donepezil HCl [Aricept 5 mg Tablet] 5 mg PO DAILY 10/19/18 Finasteride [Proscar 5 mg Tablet] 5 mg PO DAILY 10/19/18 Fluoxetine HCl [Prozac 20 mg Capsule] 40 mg PO QAM 10/19/18 Gemfibrozil 300 mg PO QHS 10/19/18 Lisinopril [Prinivil 40 mg Tablet] 40 mg PO DAILY 10/19/18 Multivit with Iron,Minerals [Spectravite Senior] 1 tab PO DAILY 10/19/18 Testosterone [Androgel] 1 applic TOP DAILY 10/19/18 Diclofenac Sodium [Voltaren] 75 mg PO BID 10/30/18 Metoprolol Succinate [Toprol Xl 25 mg Tab.sr] 25 mg PO DAILY 10/30/18 Montelukast Sodium [Singulair 10 mg Tablet] 10 mg PO QHS 10/30/18 Omeprazole 20 mg PO DAILY 10/30/18 History of Present Illness History of Present Illness: LUCIO JOHNSON is a 73 year old male 73-year-old white male with progressive right knee pain and functional disability second osteoarthritis. Patient is admitted for elective right knee arthroplasty. Hospital Course Hospital Course: Patient is a mid through the operating where he undergoes uncomplicated right knee arthroplasty. Is returned to floor in satisfactory condition. He ambulates 200 feet with physical therapy on the day of surgery. Compressive dressing is removed on postop day 1. Underlying op site is clean dry and intact. There is minimal pedal edema. Distal neurovascular examination is intact. Physical Exam Vital Signs: Temp Pulse Resp BP Pulse Ox 36.7 C 57 L 17 102/60 93 10/30/18 23:40 10/30/18 23:40 10/30/18 23:40 10/30/18 23:40 10/30/18 23:40 Intake & Output 10/30/18 10/31/18 11/01/18 06:59 06:59 06:59 Intake Total 0 6745 Output Total 2975 Balance 0 3770 Weight 112.3 kg General appearance: PRESENT: no acute distress, mild distress, well-developed, well-nourished Head exam: PRESENT: normocephalic Respiratory exam: PRESENT: unlabored Cardiovascular exam: PRESENT: RRR Pulses: PRESENT: +1 pedal pulses bilateral Vascular exam: PRESENT: normal capillary refill GI/Abdominal exam: PRESENT: soft Rectal exam: PRESENT: deferred Extremities exam: PRESENT: other - Right lower extremity OpSite is clean dry and intact. There is minimal pedal edema. Distal neurovascular examination is intact. Neurological exam: PRESENT: alert, awake, oriented to person, oriented to place , oriented to time, oriented to situation. ABSENT: motor sensory deficit Psychiatric exam: PRESENT: appropriate affect, normal mood. ABSENT: homicidal ideation, suicidal ideation Skin exam: PRESENT: dry, intact, warm. ABSENT: cyanosis, rash Results Laboratory Results: 10/31/18 06:41 10/31/18 06:41 WBC 12.2 H RBC 3.64 L Hgb 10.5 L Hct 31.3 L MCV 86 MCH 28.7 MCHC 33.4 RDW 14.5 H Plt Count 290 Impressions: Knee X-Ray 10/30/18 08:46 IMPRESSION: SATISFACTORY POSTOPERATIVE RIGHT KNEE. Status: Imported from PACS Qualifiers - * PATIENT BEING DISCHARGED WITH ANY OF THE FOLLOWING DIAGNOSIS: No VTE patient discharged on overlapping Therapy?: Yes Plan Discharge Plan: Patient to be discharged home with home health services and DME. Follow-up Dr. Mart Chand [place] for surgery in 2 weeks for staple removal.
[2018-10-31 07:47] LABS: ANION GAP 11 (5-19); BLOOD UREA NITROGEN 29 mg/dL (7-20); CALCIUM 8.8 mg/dL (8.4-10.2); CARBON DIOXIDE 23 mmol/L (22-30); CHLORIDE 107 mmol/L (98-107); GLUCOSE 169 mg/dL (75-110); SODIUM 140.8 mmol/L (137-145)
[2018-10-31] MEDS: INSULIN LISPRO 100 UNIT/ML 3 ML VIAL SUBCUT PRN ×2 (07:47→12:33)
[2018-10-31] MEDS: OXYCODONE HCL IR 5 MG TABLET PO PRN (07:50)
[2018-10-31] MEDS ORDERED: FLUOXETINE HCL 20 MG CAPSULE PO SCH (08:00)
[2018-10-31] MEDS ORDERED: FLUTICASONE NASAL SPRAY 50 MCG/SPRY 120 SPRAY/16 GM NASL SCH (10:00)
[2018-10-31] MEDS ORDERED: ATORVASTATIN CALCIUM 20 MG TABLET PO SCH (10:00)
[2018-10-31] MEDS: MODAFINIL 100 MG TABLET PO SCH (10:19)
[2018-10-31] MEDS: TAMSULOSIN HCL 0.4 MG CAP.SR.24H PO SCH (10:19)
[2018-10-31] MEDS: ASPIRIN 81 MG TABLET, ENT COATED PO SCH (10:19)
[2018-10-31] MEDS: PRENATAL VITAMIN W DHA CAPSULE PO SCH (10:20)
[2018-10-31] MEDS: FINASTERIDE 5 MG TABLET PO SCH (10:20)
[2018-10-31] MEDS: DONEPEZIL HCL 5 MG TABLET PO SCH (10:20)
[2018-10-31] MEDS: FUROSEMIDE 20 MG TABLET PO SCH (10:20)
[2018-10-31] MEDS: OXYCODONE HCL SR 10 MG TABLET PO SCH (10:20)
[2018-10-31] MEDS: AMLODIPINE BESYLATE 10 MG TABLET PO SCH (10:21)
[2018-10-31] MEDS: SENNOSIDES/DOCUSATE 8.6-50 MG 1 EACH TABLET PO SCH (10:21)
[2018-10-31] MEDS: ALLOPURINOL 100 MG TABLET PO SCH (10:21)
[2018-10-31] MEDS: LISINOPRIL 10 MG TABLET PO SCH (10:21)
[2018-10-31 15:30] VITALS: BP 157/88
== END 2018-10-31 16:30 | disposition home health service (06) | DRG 470 ==
LOC: INOR 05:40 → 4S 10:17
PROVIDERS: ADMIT Orthopaedic Surgery; ATTEND Orthopaedic Surgery
PROC: 0SRC0J9 Replacement of Right Knee Joint with Synthetic Substitute, Cemented, Open Approach (ICD-10-PCS; principal; 2018-10-30 07:30)
DX: M17.11 Unilateral primary osteoarthritis, right knee (principal); M23.305 Other meniscus derangements, unspecified medial meniscus, unspecified knee; E78.00 Pure hypercholesterolemia, unspecified; I10 Essential (primary) hypertension; E11.8 Type 2 diabetes mellitus with unspecified complications; M10.9 Gout, unspecified; G47.30 Sleep apnea, unspecified; G47.419 Narcolepsy without cataplexy; F03.90 Unspecified dementia, unspecified severity, without behavioral disturbance, psychotic disturbance, mood disturbance, and anxiety; Z79.84 Long term (current) use of oral hypoglycemic drugs; Z79.891 Long term (current) use of opiate analgesic; Z79.899 Other long term (current) drug therapy
CPT/HCPCS: 01402; 36415; 80048; 82947; 82962; 84132; 85027; 88305; 88311; 94799; C1713; C1776; G8978-GP; G8979-GP; G8987-GO; G8988-GO; J0131; J0690; J1100; J1741; J1815; J2250; J2270; J2370; J2405; J2704; J3010; J3370; J3490; J7050; J7060; J7120

== ENCOUNTER → 2018-11-22 | Outpatient (CLI) | payer OTHER, MEDICARE ==
--- NOTE | 2018-11-22 10:13 | RADIOLOGY REPORT (SQ) ---
EXAM DESCRIPTION: VENOUS UNILATERAL LOWER COMPLETED DATE/TIME: 11/22/2018 9:56 am REASON FOR STUDY: RLE PAIN Z96.651 PRESENCE OF RIGHT ARTIFICIAL KNEE JOINT M79.604 PAIN IN RIGHT L EG R22.41 LOCALIZED SWELLING, MASS AND LUMP, RIGHT LOWER LIMB COMPARISON: None. TECHNIQUE: Dynamic and static gilbert scale and color images acquired of the right leg venous system. S elected spectral images acquired with additional compression and augmentation maneuvers. The contrala teral common femoral vein and saphenofemoral junction were also imaged. Images stored on PACS. LIMITATIONS: None. FINDINGS: COMMON FEMORAL: Normal phasicity, compression and augmentation. No visualized echogenic ma terial on gilbert scale. No defects on color images. FEMORAL: Normal compression and augmentation. No visualized echogenic material on gilbert scale. No defe cts on color images. POPLITEAL: Normal compression, augmentation. No visualized echogenic material on gilbert scale. No defec ts on color images. CALF VESSELS: Normal compression, augmentation. No visualized echogenic material on gilbert scale. No de fects on color images. GSV and SSV: Normal compression, augmentation. No visualized echogenic material on gilbert scale. No def ects on color images. ANY DEEP VENOUS INSUFFICIENCY: Not evaluated. ANY EVIDENCE OF POPLITEAL CYST: No. OTHER: No other significant finding. CONTRALATERAL COMMON FEMORAL VEIN AND SAPHENOFEMORAL JUNCTION: Normal phasicity, compression and augmentation. No visualized echogenic material on gilbert scale. No de fects on color images. IMPRESSION: Negative examination for deep venous thrombosis in the right lower extremity. TECHNICAL DOCUMENTATION: JOB ID: [id number] [employer]- All Rights Reserved Reading location - IP/workstation name: [email or web address]
== END ==
LOC: SP 08:46
PROVIDERS: ATTEND Orthopaedic Surgery
DX: M79.604 Pain in right leg (principal); Z96.651 Presence of right artificial knee joint; R22.41 Localized swelling, mass and lump, right lower limb
CPT/HCPCS: 93971

== ENCOUNTER 2018-12-22 08:53 | Emergency (ER) | payer MEDICARE ==
[2018-12-22 09:48] LABS: ALANINE AMINOTRANSFERASE 15 U/L (21-72); ALBUMIN 4.6 g/dL (3.5-5.0); ALKALINE PHOSPHATASE 116 U/L (38-126); ANION GAP 13 (5-19); ASPARTATE AMINO TRANSFERASE 30 U/L (17-59); BILIRUBIN,DIRECT 0.4 mg/dL (0.0-0.4); BILIRUBIN,TOTAL 0.6 mg/dL (0.2-1.3); BLOOD UREA NITROGEN 31 mg/dL (7-20); CALCIUM 9.6 mg/dL (8.4-10.2); CARBON DIOXIDE 25 mmol/L (22-30); CHLORIDE 103 mmol/L (98-107); CREATINE KINASE 39 U/L (55-170); GLUCOSE 323 mg/dL (75-110); POTASSIUM 4.9 mmol/L (3.6-5.0); SODIUM 141.2 mmol/L (137-145); TOTAL PROTEIN 7.5 g/dL (6.3-8.2)
[2018-12-22 09:51] LABS: ABSOLUTE EOSINOPHILS # (AUTO) 0.6 10^3/uL (0.0-0.6); ABSOLUTE LYMPHOCYTES (AUTO) 1.1 10^3/uL (0.5-4.7); ABSOLUTE MONOCYTES (AUTO) 0.7 10^3/uL (0.1-1.4); ABSOLUTE NEUT (AUTO) 4.8 10^3/uL (1.7-8.2); BASOPHILS % (AUTO) 0.7 % (0-2); EOSINOPHILS % (AUTO) 8.2 % (0-6); HEMOGLOBIN 11.9 g/dL (13.5-17.0); LYMPHOCYTES % (AUTO) 15.5 % (13-45); MEAN CORPUSCULAR HEMOGLOBIN 27.4 pg (27.0-33.4); MEAN CORPUSCULAR HGB CONC 33.1 g/dL (32.0-36.0); MEAN CORPUSCULAR VOLUME 83 fl (80-97); MONOCYTES % (AUTO) 9.5 % (3-13); PLATELET COUNT 353 10^3/uL (150-450); RED BLOOD COUNT 4.35 10^6/uL (4.35-5.55); RED CELL DISTRIBUTION WIDTH 15.4 % (11.5-14.0); SEGMENTED NEUTROPHILS % (AUTO) 66.1 % (42-78); TOTAL CELLS COUNTED % (AUTO) 100 %; WHITE BLOOD COUNT 7.2 10^3/uL (4.0-10.5)
[2018-12-22 10:00] LABS: CREATINE KINASE MB 0.96 ng/mL (<4.55)
[2018-12-22 10:01] LABS: TROPONIN I < 0.012 ng/mL
--- NOTE | 2018-12-22 10:05 | RADIOLOGY REPORT (SQ) ---
EXAM DESCRIPTION: CHEST SINGLE VIEW COMPLETED DATE/TIME: 12/22/2018 9:50 am REASON FOR STUDY: chest pain COMPARISON: 10/10/2018 EXAM PARAMETERS: NUMBER OF VIEWS: One view. TECHNIQUE: Single frontal radiographic view of the chest acquired. RADIATION DOSE: NA LIMITATIONS: None. FINDINGS: LUNGS AND PLEURA: No opacities, masses or pneumothorax. No pleural effusion. MEDIASTINUM AND HILAR STRUCTURES: No masses. Contour normal. HEART AND VASCULAR STRUCTURES: Heart normal in size. Normal vasculature. BONES: No acute findings. HARDWARE: None in the chest. OTHER: No other significant finding. IMPRESSION: NO ACUTE RADIOGRAPHIC FINDING IN THE CHEST. TECHNICAL DOCUMENTATION: JOB ID: [id number] [employer]- All Rights Reserved Reading location - IP/workstation name: [email or web address]
--- NOTE | 2018-12-22 11:08 | ER Document Report ---
ED General - General Chief Complaint: Chest Pain Stated Complaint: WEAKNESS Time Seen by Provider: 12/22/18 10:51 Primary Care Provider: KOBE ROSAS MD [Primary Care Provider] - Follow up as needed Notes: Patient says he was experiencing chest pains and some shortness of breath this morning. Patient says he has this off and on over the past year. Is located mostly in the anterior left chest region. It comes and goes. Seems to be worsened with exertion. At this time, he feels a "pressure" in the anterior chest. He went to his scheduled physical therapy but it was not done because of his symptoms. They took his blood pressure they are and patient says it was 240/120, but I find that hard to believe it to be accurate when EMS his blood pressure shortly after that was 125/78. Patient sees Dr. Gomez, local drop hammer mechanic. 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 Had a recent stress test in order to undergo a right total knee replacement couple of months ago. TRAVEL OUTSIDE OF THE [place] IN LAST 30 DAYS: No - Related Data Allergies/Adverse Reactions: anesthesia medicine unknown Allergy (Severe, Uncoded 10/30/18 06:20) stopped breathing Past Medical History - Social History Smoking Status: Former Smoker Chew tobacco use (# tins/day): No Frequency of alcohol use: None Drug Abuse: None Family History: Reviewed & Not Pertinent Patient has suicidal ideation: No Patient has homicidal ideation: No - Past Medical History Cardiac Medical History: Reports: Hx Coronary Artery Disease, Hx Hypercholesterolemia, Hx Hypertension Pulmonary Medical History: Reports: Hx Asthma, Hx Pneumonia - "WALKING", Hx Sleep Apnea - has narcolepsy Endocrine Medical History: Reports: Hx Diabetes Mellitus Type 1, Hx Diabetes Mellitus Type 2 Renal/ Medical History: Reports: Hx Benign Prostatic Hyperplasia GI Medical History: Reports: Hx Gastroesophageal Reflux Disease Musculoskeletal Medical History: Reports Hx Arthritis Psychiatric Medical History: Reports: Hx Anxiety, Hx Depression, Hx Post Traumatic Stress Disorder Past Surgical History: Reports: Hx Adenoidectomy, Hx Appendectomy, Hx Herniorrhaphy, Hx Orthopedic Surgery - carpal tunnel, knee shoulder, Hx Tonsillectomy - Immunizations Hx Diphtheria, Pertussis, Tetanus Vaccination: No Hx Pneumococcal Vaccination: 07/15/14 Review of Systems - Review of Systems Notes: REVIEW OF SYSTEMS: CONSTITUTIONAL : Denies fever. EENT: Denies eye, ear, nose or mouth or throat pain or other symptoms. CARDIOVASCULAR: See HPI. RESPIRATORY: Denies cough, chest congestion, but does have some shortness of breath. GASTROINTESTINAL: Denies abdominal pain or nausea, vomiting, or diarrhea. GENITOURINARY: Denies difficulty or painful urinating, urinary frequency, blood in urine. MUSCULOSKELETAL: Denies back or neck pain. Denies joint pain or swelling. SKIN: Denies rash or skin lesions. NEUROLOGICAL: Denies LOC or altered mental status. Denies headache. Denies sensory loss or motor deficits. ALL OTHER SYSTEMS REVIEWED AND NEGATIVE. Physical Exam - Vital signs Vitals: Resp BP Pulse Ox 18 137/74 H 98 12/22/18 09:00 12/22/18 09:00 12/22/18 09:00 Interpretation: No: Hypoxic - O2 sat 97% on room air. Notes: PHYSICAL EXAMINATION: GENERAL: Well-appearing, in no acute distress. Vital signs are all essentially normal. HEAD: Atraumatic, normocephalic. EYES: Pupils equal round and reactive to light, extraocular movements intact. ENT: oropharynx clear without exudates. Moist mucous membranes. NECK: Normal range of motion, supple. LUNGS: Breath sounds clear and equal bilaterally. Patient has tenderness when I push on his left upper anterior ribs and is comparable to the pain that he is describing that he is here to be seen for. HEART: Regular rate and rhythm without murmurs. Intermittently has bigeminy, as seen on his 12-lead in triage. On the monitor now, he is in a sinus rhythm. ABDOMEN: Soft, nontender. No guarding or rebound. No masses. BACK: No tenderness throughout entire back. EXTREMITIES: Normal range of motion without pain. Negative Homans bilaterally. NEUROLOGICAL: Normal speech, normal gait. Normal sensory, motor, and reflex exams. Awake, alert, and oriented x3. Cranial nerves normal. PSYCH: Normal mood, normal affect. SKIN: Warm, dry, no rashes. Course - Re-evaluation Re-evalutation: 12/22/18 19:11 Discussed patient's symptoms with his drop hammer mechanic, Dr. Gomez, who feels the patient can be discharged home for follow-up in his office. Were going to give him a bottle of nitroglycerin tablets to try to see if it does anything for his symptoms. He says he has taken nitroglycerin in the past. Does not have any at home currently. - Vital Signs Vital signs: Temp Pulse Resp BP Pulse Ox 98 F 14 151/88 H 96 12/22/18 14:27 12/22/18 14:27 12/22/18 14:27 12/22/18 14:27 - Laboratory Result Diagrams: 12/22/18 08:42 12/22/18 08:42 Laboratory results interpreted by me: 12/22/18 12/22/18 08:42 08:42 Hgb 11.9 L Hct 36.0 L RDW 15.4 H Eosinophils % 8.2 H BUN 31 H Glucose 323 H ALT 15 L Creatine Kinase 39 L Discharge - Discharge Clinical Impression: Chest wall pain, chronic Condition: Stable Disposition: HOME, SELF-CARE Additional Instructions: CHEST PAIN OF UNCLEAR CAUSE: The exact cause of your chest pain isn't clear. Fortunately, there is no evidence of a dangerous medical condition. Further testing may be required to find the source of the pain. Most often, we find that this pain is coming from the chest wall -- the muscles or rib joints in the chest. But chest pain can come from the lung and lung lining, the esophagus, the heart valves or heart lining, and even the stomach or gallbladder. Rest. Eat lightly until the pain is gone. We may prescribe medicine for pain and inflammation. You should call the physician immediately if the pain radiates to the shoulder, jaw or arms; if you start to run a fever or develop a cough; or if you develop shortness of breath, or other new or alarming symptoms. NORMAL EXAM AND WORKUP: At this time, your examination and workup show no significant abnormality. No significant abnormal physical findings were noted. All laboratory, EKG, and imaging (x-ray, CT scans, ultrasound) studies that were ordered show no significant abnormality. Although your examination and all studies that were ordered showed no significant abnormal finding, there are no examinations and no studies that are 100% accurate. There is always the possibility that some abnormality could exist and not be detected with physical examination or within the limits and capabilities of laboratory and other studies. You should return or follow up as you were instructed on your visit today for further evaluation if your symptoms do not resolve. CHEST WALL PAIN: Your chest pain may be coming from the chest wall. This is often caused by straining the muscles or joints in the chest during physical activity, direct trauma, coughing, or vigorous vomiting. Persons with arthritis are especially prone to this type of pain, due to inflammation of the cartilage joints near the breast bone. Occasionally, no cause can be found. Rest from strenuous physical activity. This kind of chest pain is usually made worse by movement of the chest. Depending on the symptoms, we may prescribe medicine for pain, muscle relaxation, and antiinflammatory effects. If the pain is new, and seems to be due to muscle strain, cold packs can help. Otherwise, apply gentle warmth to the painful area for 15 minutes every hour or two. You should call contact the doctor immediately if things change. Further evaluation is needed if you develop a fever or cough, if the nature of the pain changes, or if you become short of breath. Unlikely, but possible ANGINA EPISODE: Your physician has diagnosed the pain you experienced as an episode of angina. Angina occurs when a portion of the heart muscle temporarily lacks oxygen. It does not cause any permanent heart damage, but serves as a warning. Hospitalization is not necessary now. Evaluation of your cardiac condition, and medical therapy for angina will be necessary. It's important you be sure to keep all appointments and take medication exactly as prescribed. Angina is usually treated with a type of "nitrate" medication. This is available as ointment, pills, or sublingual (under the tongue) tablets. Depending on your clinical situation, other medications may be added to help control angina. These may include beta blockers or calcium blockers. If episodes of angina are occurring with increased frequency, or if chest pain lasts longer than 15 minutes or does not respond to nitroglycerin, you must seek emergency medical care immediately. NITRATES: Nitroglycerin and related longer-acting nitrate medications are used to prevent or treat attacks of angina. These medicines dilate blood vessels, decreasing the work of the heart, and improving its supply of oxygen. Many different forms are available, including sublingual tablets (used under the tongue), sprays, skin patches, and long-acting pills. If the particular form of medication you have been given is not working well for you, contact your doctor. Long-acting forms: Take exactly as prescribed. Sudden stopping of medication can provoke increased attacks. Sublingual tabs or spray: A headache will usually occur with use. Sit or lie while waiting for the pain to go away. If angina doesn't respond to three doses (five minutes apart), call for emergency assistance. ANTACID THERAPY: You have been instructed to start antacid therapy. Antacids directly neutralize stomach acid. This is useful for acid irritation of the esophagus, gastritis, and ulcers. You should take two tablespoons of antacid one hour after each meal and three hours after each meal. If you are not eating, take the antacid every two hours. If you are using a concentrate (such as Maalox TC), use only one tablespoon. Many antacids affect the bowels. The most common problem is diarrhea. In this case, a pure aluminum hydroxide antacid (such as AlternaGel) can be substituted for some or all doses. If the problem is constipation, add a teaspoon of Milk of Magnesia to each dose. Call the doctor if you experience continued diarrhea or constipation, or if you develop lightheadedness, bloody stool or vomitus, severe abdominal pain, or black stool. FOLLOW-UP CARE: If you have been referred to a physician for follow-up care, call the physicians office for an appointment as you were instructed or within the next two days. If you experience worsening or a significant change in your symptoms, notify the physician immediately or return to the Emergency Department at any time for re-evaluation. I spoke with Dr. Gomez and reviewed your data. We feel you can go home. I am prescribing nitroglycerin for you to try sublingually for this pressure feeling in your chest. If it does not help, you can stop trying it. Dr. collado wants to see you in his office for follow-up next week. Prescriptions: Nitroglycerin 0.4 mg SL Q10MP PRN #[id number] tab.subl PRN Reason: Referrals: KOBE ROSAS MD [Primary Care Provider] - Follow up as needed
[2018-12-22 14:34] VITALS: BP 151/88
--- NOTE | 2018-12-23 20:14 | EKG REPORT ---
SEVERITY:- ABNORMAL ECG - SINUS RHYTHM VENTRICULAR BIGEMINY : Confirmed by: Luna Colin 23-Dec-2018 20:13:14
== END 2018-12-22 14:34 | disposition home or self-care (01) ==
LOC: ER 08:53
DX: R07.89 Other chest pain (principal); G89.29 Other chronic pain; R00.8 Other abnormalities of heart beat; I25.10 Atherosclerotic heart disease of native coronary artery without angina pectoris; R06.02 Shortness of breath; I10 Essential (primary) hypertension; J45.909 Unspecified asthma, uncomplicated; E11.9 Type 2 diabetes mellitus without complications; Z88.4 Allergy status to anesthetic agent; Z87.891 Personal history of nicotine dependence
CPT/HCPCS: 36415; 71045; 80053; 82550; 82553; 82962; 84484; 85025; 93005; 93010; 99284

== ENCOUNTER → 2019-09-11 | Outpatient (CLI) | payer OTHER, MEDICARE ==
--- NOTE | 2019-09-11 12:13 | RADIOLOGY REPORT (SQ) ---
EXAM DESCRIPTION: CHEST PA/LATERAL COMPLETED DATE/TIME: 09/11/2019 11:59 am REASON FOR STUDY: PRE-OP COMPARISON: AP view of the chest from 12/22/2018. EXAM PARAMETERS: NUMBER OF VIEWS: two views TECHNIQUE: Digital Frontal and Lateral radiographic views of the chest acquired. RADIATION DOSE: NA LIMITATIONS: none FINDINGS: LUNGS AND PLEURA: No consolidation, pleural effusion or pneumothorax. MEDIASTINUM AND HILAR STRUCTURES: No mediastinal or hilar contour abnormality. HEART AND VASCULAR STRUCTURES: The cardiac silhouette and pulmonary vasculature are within normal lee its. BONES: Status post right shoulder arthroplasty. HARDWARE: As above. OTHER: No other finding. IMPRESSION: No acute cardiopulmonary process. TECHNICAL DOCUMENTATION: JOB ID: [id number] [employer]- All Rights Reserved Reading location - IP/workstation name: [email or web address]
[2019-09-11 12:30] LABS: ABSOLUTE BASOPHILS # (AUTO) 0.1 10^3/uL (0.0-0.2); ABSOLUTE EOSINOPHILS # (AUTO) 0.8 10^3/uL (0.0-0.6); ABSOLUTE LYMPHOCYTES (AUTO) 1.6 10^3/uL (0.5-4.7); ABSOLUTE MONOCYTES (AUTO) 0.7 10^3/uL (0.1-1.4); ABSOLUTE NEUT (AUTO) 6.7 10^3/uL (1.7-8.2); BASOPHILS % (AUTO) 1.2 % (0-2); HEMATOCRIT 37.8 % (37.9-51.0); HEMOGLOBIN 12.9 g/dL (13.5-17.0); LYMPHOCYTES % (AUTO) 16.4 % (13-45); MEAN CORPUSCULAR HEMOGLOBIN 28.2 pg (27.0-33.4); MEAN CORPUSCULAR HGB CONC 34.2 g/dL (32.0-36.0); MEAN CORPUSCULAR VOLUME 83 fl (80-97); MONOCYTES % (AUTO) 7.2 % (3-13); PLATELET COUNT 414 10^3/uL (150-450); RED BLOOD COUNT 4.58 10^6/uL (4.35-5.55); RED CELL DISTRIBUTION WIDTH 15.6 % (11.5-14.0); SEGMENTED NEUTROPHILS % (AUTO) 67.2 % (42-78); TOTAL CELLS COUNTED % (AUTO) 100 %
[2019-09-11 12:37] LABS: APPEARANCE,URINE CLEAR; COLOR,URINE STRAW
[2019-09-11 12:38] LABS: ADD MANUAL MICROSCOPIC YES; BILIRUBIN,URINE NEGATIVE (NEGATIVE); GLUCOSE, URINE NEGATIVE (NEGATIVE); KETONES,URINE NEGATIVE (NEGATIVE); LEUKOCYTE ESTERASE,URINE NEGATIVE (NEGATIVE); NITRITE,URINE NEGATIVE (NEGATIVE); PROTEIN,URINE NEGATIVE (NEGATIVE); URINE SPECIFIC GRAVITY 1.012; UROBILINOGEN,URINE NEGATIVE mg/dL (<2.0)
[2019-09-11 12:50] LABS: ANION GAP 12 (5-19); BLOOD UREA NITROGEN 34 mg/dL (7-20); CALCIUM 9.9 mg/dL (8.4-10.2); CARBON DIOXIDE 26 mmol/L (22-30); CHLORIDE 106 mmol/L (98-107); GLUCOSE 129 mg/dL (75-110); POTASSIUM 5.3 mmol/L (3.6-5.0)
[2019-09-11 12:51] LABS: HYALINE CASTS, URINE RARE /LPF
--- NOTE | 2019-09-11 13:58 | EKG REPORT ---
SEVERITY:- OTHERWISE NORMAL ECG - SINUS RHYTHM VENTRICULAR PREMATURE COMPLEX BORDERLINE LEFT AXIS DEVIATION : Confirmed by: Mike Allred MD 11-Sep-2019 13:57:21
== END ==
LOC: OD 11:26
PROVIDERS: ATTEND Orthopaedic Surgery
DX: Z01.810 Encounter for preprocedural cardiovascular examination (principal); Z01.811 Encounter for preprocedural respiratory examination; Z01.812 Encounter for preprocedural laboratory examination; M17.12 Unilateral primary osteoarthritis, left knee; I10 Essential (primary) hypertension; E11.9 Type 2 diabetes mellitus without complications
CPT/HCPCS: 36415; 71046; 80048; 81001; 83036; 85025; 93005; 93010

== ENCOUNTER 2019-10-03 07:12 | Inpatient (IN) | payer OTHER, MEDICARE ==
[~2019-10-03 07:12] MED LIST changes: -BUPIVACAINE INJ/PF LIPOSOME/PF 266 MG/20 ML SDV IJ PRN; +BUPIVACAINE INJ/PF LIPOSOME/PF 266 MG/20 ML SDV INJ PRN; -CEFAZOLIN INJ 1 GM VIAL ONE; +IBUPROFEN 800 MG in NORMAL SALINE 250 ML IV PRN; -IBUPROFEN 800 MG/NS 250 ML IV PRN; -LANSOPRAZOLE 15 MG TAB.RAP.DR ONE; -LANSOPRAZOLE 15 MG TAB.RAP.DR PO PRN; -OXYCODONE HCL SR 10 MG TABLET PO ONE; +PANTOPRAZOLE SODIUM 20 MG TABLET.DR PO PRN; +VANCOMYCIN HCL 1,000 MG in DEXTROSE 5%-WATER 250 ML IV PRN; -VANCOMYCIN HCL 1,000 MG in DEXTROSE 5%-WATER 250 ML IV SCH
[2019-10-03] MEDS ORDERED: OXYCODONE HCL SR 10 MG TABLET PO ONE (08:05)
[2019-10-03] MEDS ORDERED: PANTOPRAZOLE SODIUM 20 MG TABLET.DR PO ONE (08:05)
[2019-10-03] MEDS ORDERED: CEFAZOLIN INJ 1 GM VIAL ONE (08:06)
[2019-10-03] MEDS ORDERED: PROPOFOL INJ 200 MG/20 ML VIAL IV ONE (08:58)
[2019-10-03] MEDS ORDERED: FENTANYL CITRATE INJ/PF 100 MCG/2 ML AMPUL ONE (08:58)
[2019-10-03] MEDS ORDERED: MIDAZOLAM 2 MG/2 ML INJ ONE (08:58)
[2019-10-03] MEDS ORDERED: TRANEXAMIC ACID INJ/PF 1,000 MG/10 ML SDV ONE ×2 (09:07→13:52)
[2019-10-03] MEDS ORDERED: FENTANYL CITRATE INJ/PF 100 MCG/2 ML AMPUL IV PRN ×3 (09:58)
[2019-10-03] MEDS ORDERED: ONDANSETRON HCL INJ/PF 4 MG/2 ML SDV IV PRN (09:58)
[2019-10-03] MEDS ORDERED: DIPHENHYDRAMINE HCL 50 MG/ML VIAL IV PRN ×2 (09:58→10:45)
[2019-10-03] MEDS ORDERED: PROMETHAZINE HCL INJ 25 MG/1 ML VIAL IV PRN ×2 (09:58)
[2019-10-03] MEDS ORDERED: OXYCODONE-ACETAMINOPHEN 5-325 MG TABLET PO PRN ×2 (09:58)
[2019-10-03] MEDS ORDERED: MORPHINE SULFATE 10 MG/ML INJ IV PRN (09:58)
[2019-10-03] MEDS ORDERED: MEPERIDINE HCL/PF INJ 25 MG/1 ML DISP.SYRIN IV PRN (09:58)
--- NOTE | 2019-10-03 10:43 | Operative Report ---
Operative Report DATE OF SURGERY: 10/03/19 PREOPERATIVE DIAGNOSIS: Left knee arthritis OPERATION: Left knee arthroplasty SURGEON: [place] ANESTHESIA: Spinal TISSUE REMOVED OR ALTERED: Bone to pathology COMPLICATIONS: Unstable overhead light drips into the field, hits the assistant professor of communication in the head and contaminates the case ESTIMATED BLOOD LOSS: 75 PROCEDURE: Implants used: Femur: Gregg triathlon size 6 CR femur Tibia: 6 tibia Tibial liner: 9 mm CS insert Patella: 38 mm oval patella Procedure with the patient supine on the operating table the left the limb is prepped and draped in a sterile fashion. The limb was elevated for exsanguination and the tourniquet inflated to 280 torr. A standard midline median parapatellar approach the knee is taken. Access is gained to the femoral canal through the intercondylar notch. Intramedullary alignment instrumentation used to resect 10 mm of distal femur in 5 of valgus. Sizing guide indicated a size 6 femur. Appropriate cutting jig is then used to fashion anterior posterior and chamfer cuts. A trial reduction femurs performed and this is judged to be adequate. Attention was next turned to the tibia. Using an extra medullary alignment system 9 millimeters was resected off the lateral tibial plateau. This is sized to a size 6 tibia. A trial reduction was now performed with a 6 femur and a 6 tibia using a 9 millimeters spacer. It is full extension and central patellofemoral tracking. The articular surface the patella was next resected using an oscillating saw. All trial implants were removed. Polymethylmethacrylate is mixed and used to cement the above implants in place. On adequate curing the cement excess cement was removed the tourniquet was deflated hemostasis obtained the wound is then closed in layers using interrupted Vicryl followed by agnes. A sterile compressive dressing was applied and the patient returned to recovery room in satisfactory condition.
[2019-10-03] MEDS ORDERED: MAG HYDROX/AL HYDROX/SIMETH SUSP 30 ML UDCUP PO PRN (10:45)
[2019-10-03] MEDS ORDERED: RINGERS SOLUTION,LACTATED 1,000 ML IV PRN (10:45)
[2019-10-03] MEDS ORDERED: ONDANSETRON 4 MG TAB.RAPDIS PO PRN (10:45)
[2019-10-03] MEDS ORDERED: EPHEDRINE SULFATE INJ 50 MG/1 ML AMPULE ONE (11:00)
--- NOTE | 2019-10-03 11:44 | RADIOLOGY REPORT (SQ) ---
EXAM DESCRIPTION: KNEE LEFT 2 VIEWS COMPLETED DATE/TIME: 10/03/2019 11:32 am REASON FOR STUDY: Post OP -Long Cassette in PACU M17.12 UNILATERAL PRIMARY OSTEOARTHRITIS, LEFT KNE E COMPARISON: None. NUMBER OF VIEWS: Two views. TECHNIQUE: AP and lateral radiographic images acquired of the left knee. LIMITATIONS: None. FINDINGS: MINERALIZATION: Normal. BONES: Status post left TKA. The hardware is in anatomic alignment. There is no periprosthetic frac ture. There is expected intra-articular and subcutaneous emphysema. JOINT: As above. SOFT TISSUES: As above. OTHER: Surgical agnes. IMPRESSION: Uncomplicated left TKA with expected immediate postoperative findings. TECHNICAL DOCUMENTATION: JOB ID: [id number] [employer]- All Rights Reserved Reading location - IP/workstation name: [email or web address]
[2019-10-03] MEDS ORDERED: DEXTROSE 50%-WATER SYRINGE 12.5 GM/25 ML DOSE IV PRN (12:00)
[2019-10-03] MEDS ORDERED: DEXTROSE 40% GEL 15 GM TUBE X 2 PO PRN (12:00)
[2019-10-03] MEDS ORDERED: DEXTROSE 50%-WATER SYRINGE 25 GM/50 ML DOSE IV PRN (12:00)
[2019-10-03] MEDS ORDERED: DEXTROSE 40% GEL 15 GM TUBE PO PRN (12:00)
[2019-10-03] MEDS ORDERED: GLUCAGON,HUMAN RECOMB 1 MG INJ IM PRN (12:00)
[2019-10-03] MEDS ORDERED: TRANEXAMIC ACID INJ/PF 1,000 MG/10 ML SDV IV SCH (13:00)
[2019-10-03] MEDS ORDERED: GABAPENTIN 400 MG CAPSULE PO SCH (14:00)
[2019-10-03] MEDS: OXYCODONE HCL IR 5 MG TABLET PO PRN ×2 (14:59→21:04)
[2019-10-03] MEDS: METFORMIN HCL 500 MG TABLET PO SCH (16:00)
[2019-10-03] MEDS: INSULIN LISPRO 100 UNIT/ML 3 ML VIAL SUBCUT SCH ×2 (16:00→21:30)
[2019-10-03] MEDS: SENNOSIDES/DOCUSATE 8.6-50 MG 1 EACH TABLET PO SCH (17:46)
[2019-10-03] MEDS: IBUPROFEN 800 MG in NORMAL SALINE 250 ML IV SCH (17:47)
[2019-10-03] MEDS: GEMFIBROZIL 600 MG TABLET PO SCH (21:05)
[2019-10-03] MEDS: GABAPENTIN 400 MG CAPSULE PO SCH (21:05)
[2019-10-03] MEDS: MONTELUKAST SODIUM 10 MG TABLET PO SCH (21:06)
[2019-10-03] MEDS: TAMSULOSIN HCL 0.4 MG CAP.SR.24H PO SCH (21:06)
[2019-10-03] MEDS: ATORVASTATIN CALCIUM 20 MG TABLET PO SCH (21:06)
[2019-10-03] MEDS: OXYCODONE HCL SR 10 MG TABLET PO SCH (21:32)
[2019-10-03] MEDS ORDERED: VANCOMYCIN HCL 1,000 MG in DEXTROSE 5%-WATER 250 ML IV ONE (22:45)
[2019-10-04] MEDS: IBUPROFEN 800 MG in NORMAL SALINE 250 ML IV SCH ×3 (02:01→17:29)
[2019-10-04] MEDS: OXYCODONE HCL IR 5 MG TABLET PO PRN (03:12)
[2019-10-04] MEDS: GABAPENTIN 400 MG CAPSULE PO SCH ×3 (05:41→21:44)
[2019-10-04] MEDS: PANTOPRAZOLE SODIUM 20 MG TABLET.DR PO SCH (05:42)
[2019-10-04 05:58] LABS: HEMATOCRIT 32.6 % (37.9-51.0); HEMOGLOBIN 10.9 g/dL (13.5-17.0); MEAN CORPUSCULAR HEMOGLOBIN 28.2 pg (27.0-33.4); MEAN CORPUSCULAR HGB CONC 33.5 g/dL (32.0-36.0); MEAN CORPUSCULAR VOLUME 84 fl (80-97); PLATELET COUNT 272 10^3/uL (150-450); RED BLOOD COUNT 3.87 10^6/uL (4.35-5.55); RED CELL DISTRIBUTION WIDTH 15.8 % (11.5-14.0); WHITE BLOOD COUNT 9.5 10^3/uL (4.0-10.5)
[2019-10-04 06:21] LABS: ANION GAP 13 (5-19); BLOOD UREA NITROGEN 19 mg/dL (7-20); CALCIUM 9.1 mg/dL (8.4-10.2); CARBON DIOXIDE 21 mmol/L (22-30); CHLORIDE 107 mmol/L (98-107); GLUCOSE 148 mg/dL (75-110); POTASSIUM 4.7 mmol/L (3.6-5.0)
--- NOTE | 2019-10-04 06:55 | PDOC PROGRESS REPORT ---
Subjective Progress Note for:: 10/04/19 Reason For Visit: M17.12 UNILATERAL PRIMARY OSTEOARTHRITIS, LEFT KNE 74-year-old white male now postop day 1 status post left knee arthroplasty. Patient complaining of pain overnight as well as a tight dressing. Physical Exam Vital Signs: Temp Pulse Resp BP Pulse Ox 36.8 C 88 19 173/86 H 97 10/03/19 23:19 10/03/19 23:19 10/03/19 23:19 10/03/19 23:19 10/03/19 23:19 Intake & Output 10/02/19 10/03/19 10/04/19 06:59 06:59 06:59 Intake Total 7122 Output Total 5179 Balance 1943 Weight 109.6 kg Physical Exam: Middle-aged white male lying in bed. Patient is alert, appropriate General appearance: PRESENT: mild distress, well-developed, well-nourished Head exam: PRESENT: normocephalic Respiratory exam: PRESENT: unlabored Cardiovascular exam: PRESENT: RRR Pulses: PRESENT: +1 pedal pulses bilateral Vascular exam: PRESENT: normal capillary refill GI/Abdominal exam: PRESENT: soft Rectal exam: PRESENT: deferred Extremities exam: PRESENT: other - Left lower extremity compressive dressing removed this morning. Underlying OpSite dressings clean dry and intact. There is minimal pedal edema. Distal neurovascular examination is intact. Neurological exam: PRESENT: alert, awake, oriented to person, oriented to place, oriented to time, oriented to situation. ABSENT: motor sensory deficit Psychiatric exam: PRESENT: appropriate affect, normal mood. ABSENT: homicidal ideation, suicidal ideation Skin exam: PRESENT: dry, intact, warm. ABSENT: cyanosis, rash Results Laboratory Results: 10/04/19 05:15 10/04/19 05:15 10/03/19 10/04/19 10/04/19 07:33 05:15 05:15 WBC 9.5 RBC 3.87 L Hgb 10.9 L Hct 32.6 L MCV 84 MCH 28.2 MCHC 33.5 RDW 15.8 H Plt Count 272 Sodium 141.4 Potassium 5.1 H 4.7 Chloride 107 Carbon Dioxide 21 L Anion Gap 13 BUN 19 Creatinine 1.05 Est GFR ( Amer) > 60 Glucose 148 H Calcium 9.1 Impressions: Knee X-Ray 10/03/19 10:47 IMPRESSION: Uncomplicated left TKA with expected immediate postoperative findings. Status: Imported from PACS Assessment & Plan - Diagnosis (1) Arthritis of left knee Is this a current diagnosis for this admission?: Yes Plan: Mobilized with physical therapy and weightbearing as tolerated basis - Time Time Spent with patient: 15-24 minutes Anticipated discharge: Home with Homehealth Within: within 24 hours
[2019-10-04] MEDS: INSULIN LISPRO 100 UNIT/ML 3 ML VIAL SUBCUT SCH ×4 (07:59→21:43)
[2019-10-04] MEDS: LISINOPRIL 10 MG TABLET PO SCH (09:30)
[2019-10-04] MEDS: OXYCODONE HCL SR 10 MG TABLET PO SCH ×2 (09:30→21:44)
[2019-10-04] MEDS: METOPROLOL SUCCINATE 25 MG TAB.SR.24H PO SCH (09:31)
[2019-10-04] MEDS: PRENATAL VITAMIN W DHA CAPSULE PO SCH (09:31)
[2019-10-04] MEDS: DONEPEZIL HCL 5 MG TABLET PO SCH (09:31)
[2019-10-04] MEDS: LORATADINE 10 MG TABLET PO SCH (09:31)
[2019-10-04] MEDS: ALLOPURINOL 100 MG TABLET PO SCH (09:31)
[2019-10-04] MEDS: AMLODIPINE BESYLATE 10 MG TABLET PO SCH (09:31)
[2019-10-04] MEDS: FLUOXETINE HCL 20 MG CAPSULE PO SCH (09:31)
[2019-10-04] MEDS: ASPIRIN 81 MG TABLET, ENT COATED PO SCH (09:31)
[2019-10-04] MEDS: SENNOSIDES/DOCUSATE 8.6-50 MG 1 EACH TABLET PO SCH ×2 (09:31→17:29)
[2019-10-04] MEDS: FUROSEMIDE 20 MG TABLET PO SCH (09:31)
[2019-10-04] MEDS: FINASTERIDE 5 MG TABLET PO SCH (09:31)
[2019-10-04] MEDS: METFORMIN HCL 500 MG TABLET PO SCH ×2 (09:31→16:12)
[2019-10-04] MEDS: FLUTICASONE NASAL SPRAY 50 MCG/SPRY 120 SPRAY/16 GM NASL SCH (09:32)
[2019-10-04] MEDS ORDERED: [UNRECOGNIZED DRUG - REMARK] PO SCH (10:00)
[2019-10-04] MEDS ORDERED: ATORVASTATIN CALCIUM 10 MG TABLET PO SCH (10:00)
[2019-10-04] MEDS: TAMSULOSIN HCL 0.4 MG CAP.SR.24H PO SCH (21:41)
[2019-10-04] MEDS: GEMFIBROZIL 600 MG TABLET PO SCH (21:42)
[2019-10-04] MEDS: ATORVASTATIN CALCIUM 20 MG TABLET PO SCH (21:43)
[2019-10-04] MEDS: MONTELUKAST SODIUM 10 MG TABLET PO SCH (21:46)
[2019-10-05] MEDS: OXYCODONE HCL IR 5 MG TABLET PO PRN ×3 (00:21→20:19)
[2019-10-05] MEDS: ZOLPIDEM TARTRATE 5 MG TABLET PO PRN (00:22)
[2019-10-05] MEDS: IBUPROFEN 800 MG in NORMAL SALINE 250 ML IV SCH ×2 (01:44→09:52)
[2019-10-05] MEDS: GABAPENTIN 400 MG CAPSULE PO SCH ×3 (05:23→21:20)
[2019-10-05] MEDS: PANTOPRAZOLE SODIUM 20 MG TABLET.DR PO SCH (05:23)
[2019-10-05 06:17] LABS: HEMATOCRIT 30.5 % (37.9-51.0); HEMOGLOBIN 10.4 g/dL (13.5-17.0); MEAN CORPUSCULAR HEMOGLOBIN 28.8 pg (27.0-33.4); MEAN CORPUSCULAR HGB CONC 34.1 g/dL (32.0-36.0); MEAN CORPUSCULAR VOLUME 85 fl (80-97); PLATELET COUNT 268 10^3/uL (150-450); RED BLOOD COUNT 3.61 10^6/uL (4.35-5.55); RED CELL DISTRIBUTION WIDTH 15.5 % (11.5-14.0); WHITE BLOOD COUNT 10.2 10^3/uL (4.0-10.5)
--- NOTE | 2019-10-05 06:49 | PDOC PROGRESS REPORT ---
Subjective Progress Note for:: 10/05/19 Reason For Visit: M17.12 UNILATERAL PRIMARY OSTEOARTHRITIS, LEFT KNE 74-year-old white male now postop day 2 status post left knee arthroplasty. Very limited progress with physical therapy. Physical Exam Vital Signs: Temp Pulse Resp BP Pulse Ox 36.9 C 93 17 155/72 H 100 10/05/19 00:15 10/05/19 00:15 10/05/19 00:15 10/05/19 00:15 10/05/19 00:15 Intake & Output 10/03/19 10/04/19 10/05/19 06:59 06:59 06:59 Intake Total 7122 2800 Output Total 5179 2100 Balance 1943 700 Weight 109.6 kg 109.6 kg General appearance: PRESENT: no acute distress, mild distress Respiratory exam: PRESENT: unlabored Cardiovascular exam: PRESENT: RRR Pulses: PRESENT: +1 pedal pulses bilateral GI/Abdominal exam: PRESENT: soft Rectal exam: PRESENT: deferred Musculoskeletal exam: PRESENT: other - Press of dressing removed from the left lower extremity. Underlying OpSite dressings clean dry and intact. Minimal p edal edema. Distal neurovascular examination is intact. Neurological exam: PRESENT: alert, awake, oriented to person, oriented to place, oriented to time, oriented to situation. ABSENT: motor sensory deficit Skin exam: PRESENT: dry, intact, warm. ABSENT: cyanosis, rash Results Laboratory Results: 10/05/19 05:47 10/04/19 05:15 10/05/19 05:47 WBC 10.2 RBC 3.61 L Hgb 10.4 L Hct 30.5 L MCV 85 MCH 28.8 MCHC 34.1 RDW 15.5 H Plt Count 268 Impressions: Knee X-Ray 10/03/19 10:47 IMPRESSION: Uncomplicated left TKA with expected immediate postoperative findings. Assessment & Plan - Diagnosis (1) Arthritis of left knee Is this a current diagnosis for this admission?: Yes Plan: Mobilized with physical therapy as patient tolerates. Anticipate the need for detention facility placement. - Time Time Spent with patient: 15-24 minutes Anticipated discharge: SNF Within: when bed available
[2019-10-05] MEDS: INSULIN LISPRO 100 UNIT/ML 3 ML VIAL SUBCUT SCH ×4 (08:36→22:38)
[2019-10-05] MEDS: FLUOXETINE HCL 20 MG CAPSULE PO SCH (08:44)
[2019-10-05] MEDS: METFORMIN HCL 500 MG TABLET PO SCH ×2 (08:44→16:50)
[2019-10-05] MEDS: FLUTICASONE NASAL SPRAY 50 MCG/SPRY 120 SPRAY/16 GM NASL SCH (09:52)
[2019-10-05] MEDS: OXYCODONE HCL SR 10 MG TABLET PO SCH (09:53)
[2019-10-05] MEDS: ASPIRIN 81 MG TABLET, ENT COATED PO SCH (09:53)
[2019-10-05] MEDS: METOPROLOL SUCCINATE 25 MG TAB.SR.24H PO SCH (09:53)
[2019-10-05] MEDS: DONEPEZIL HCL 5 MG TABLET PO SCH (09:53)
[2019-10-05] MEDS: FINASTERIDE 5 MG TABLET PO SCH (09:53)
[2019-10-05] MEDS: LISINOPRIL 10 MG TABLET PO SCH (09:53)
[2019-10-05] MEDS: PRENATAL VITAMIN W DHA CAPSULE PO SCH (09:53)
[2019-10-05] MEDS: AMLODIPINE BESYLATE 10 MG TABLET PO SCH (09:54)
[2019-10-05] MEDS: FUROSEMIDE 20 MG TABLET PO SCH (09:54)
[2019-10-05] MEDS: SENNOSIDES/DOCUSATE 8.6-50 MG 1 EACH TABLET PO SCH ×2 (09:54→18:06)
[2019-10-05] MEDS: LORATADINE 10 MG TABLET PO SCH (09:54)
[2019-10-05] MEDS: ALLOPURINOL 100 MG TABLET PO SCH (10:04)
[2019-10-05] MEDS: TAMSULOSIN HCL 0.4 MG CAP.SR.24H PO SCH (21:20)
[2019-10-05] MEDS: GEMFIBROZIL 600 MG TABLET PO SCH (21:20)
[2019-10-05] MEDS: MONTELUKAST SODIUM 10 MG TABLET PO SCH (21:21)
[2019-10-05] MEDS: ATORVASTATIN CALCIUM 20 MG TABLET PO SCH (21:21)
[2019-10-06] MEDS: OXYCODONE HCL IR 5 MG TABLET PO PRN ×3 (02:13→20:08)
[2019-10-06 05:56] LABS: HEMATOCRIT 30.6 % (37.9-51.0); HEMOGLOBIN 10.4 g/dL (13.5-17.0); MEAN CORPUSCULAR HEMOGLOBIN 28.5 pg (27.0-33.4); MEAN CORPUSCULAR HGB CONC 33.9 g/dL (32.0-36.0); MEAN CORPUSCULAR VOLUME 84 fl (80-97); PLATELET COUNT 307 10^3/uL (150-450); RED BLOOD COUNT 3.65 10^6/uL (4.35-5.55); RED CELL DISTRIBUTION WIDTH 15.4 % (11.5-14.0); WHITE BLOOD COUNT 11.6 10^3/uL (4.0-10.5)
[2019-10-06] MEDS: GABAPENTIN 400 MG CAPSULE PO SCH ×3 (06:23→21:19)
[2019-10-06] MEDS: PANTOPRAZOLE SODIUM 20 MG TABLET.DR PO SCH (06:25)
--- NOTE | 2019-10-06 07:07 | PDOC TRANSFER SUMMARY ---
Impression - Admit/DC Date/PCP Admission Date/Primary Care Provider: 10/03/19 07:12 GAVI FALLON DO Discharge Date: 10/06/19 - Discharge Diagnosis (1) Arthritis of left knee Is this a current diagnosis for this admission?: Yes - Additional Information Resuscitation Status: Full Code Discharge Diet: Regular Discharge Activity: Balance Activity w/Rest, No tub bath Referrals: LAKE HOLLINS MD [ACTIVE STAFF] - 10/18/19 9:00 am Home Medications: Aspirin [Aspirin EC] 81 mg PO DAILY 03/28/13 Atorvastatin Calcium [Lipitor 10 mg Tablet] 20 mg PO DAILY 03/28/13 Furosemide [Lasix 20 mg Tablet] 20 mg PO DAILY 03/28/13 Gabapentin [Neurontin 400 mg Capsule] 400 mg PO TID 03/28/13 Loratadine [Loratadine Allergy] 10 mg PO DAILY 03/28/13 Amlodipine Besylate 10 mg PO DAILY 07/10/13 Clotrimazole 1% Topical [Lotrimin 1% Topical Solution] 1 applic TP ASDIR PRN 07/10/13 Ferrous Fumarate [Iron] 65 mg PO DAILY 07/10/13 Metformin HCl [Glucophage 500 Mg Tablet] 1,000 mg PO BID 07/10/13 Tamsulosin HCl 0.4 mg PO QHS 07/10/13 Fluticasone Propionate [Flonase Nasal [place] 50 Mcg/[place] 16 gm] 2 sprays NASL DAILY 12/10/14 Allopurinol [Zyloprim 100 mg Tablet] 100 mg PO DAILY 10/19/18 Cyanocobalamin (Vitamin B-12) [Vitamin B12] 1,000 mcg PO DAILY 10/19/18 Donepezil HCl [Aricept 5 mg Tablet] 5 mg PO DAILY 10/19/18 Finasteride [Proscar 5 mg Tablet] 5 mg PO DAILY 10/19/18 Fluoxetine HCl [Prozac 20 mg Capsule] 40 mg PO QAM 10/19/18 Gemfibrozil 300 mg PO QHS 10/19/18 Lisinopril [Prinivil 40 mg Tablet] 40 mg PO DAILY 10/19/18 Multivit with Iron,Minerals [Spectravite Senior] 1 tab PO DAILY 10/19/18 Testosterone [Androgel] 1 applic TOP DAILY 10/19/18 Diclofenac Sodium [Voltaren] 75 mg PO BID 10/30/18 Metoprolol Succinate [Toprol Xl 25 mg Tab.sr] 25 mg PO DAILY 10/30/18 Montelukast Sodium [Singulair 10 mg Tablet] 10 mg PO QHS 10/30/18 Omeprazole 20 mg PO DAILY 10/30/18 Nitroglycerin 0.4 mg SL Q10MP PRN #25 tab.subl 12/22/18 History of Present Illiness History of Present Illness: LUCIO JOHNSON is a 74 year old male 74-year-old white male with progressive left knee pain and functional disability second Cristian arthritis. Patient is admitted for elective left knee arthroplasty. Hospital Course Hospital Course: Patient is admitted through the operating room and undergoes an uncomplicated left knee arthroplasty. Please return to the floor when seen by physical therapy for weightbearing as tolerated relation. Physical therapy progress is slow secondary to physical conditioning, comorbidities, and low pain threshold. Physical Exam Vital Signs: Temp Pulse Resp BP Pulse Ox 36.9 C 93 17 145/80 H 96 10/06/19 00:30 10/06/19 00:30 10/06/19 00:30 10/06/19 00:30 10/06/19 00:30 Intake & Output 10/05/19 10/06/19 10/07/19 06:59 06:59 06:59 Intake Total 2800 1455 Output Total 2100 1700 Balance 700 -245 Weight 109.6 kg General appearance: PRESENT: no acute distress, obese Head exam: PRESENT: normocephalic Respiratory exam: PRESENT: unlabored Cardiovascular exam: PRESENT: RRR Pulses: PRESENT: +1 pedal pulses bilateral GI/Abdominal exam: PRESENT: soft Rectal exam: PRESENT: deferred Musculoskeletal exam: PRESENT: other - Left lower extremity OpSite dressings clean dry and intact. Significant flexion contracture that needs to be addressed with physical therapy. Neurological exam: PRESENT: alert, awake, oriented to person, oriented to place, oriented to time, oriented to situation. ABSENT: motor sensory deficit Skin exam: PRESENT: dry, intact, warm. ABSENT: cyanosis, rash Results Laboratory Results: WBC 11.6 10^3/uL (4.0-10.5) H 10/06/19 05:26 RBC 3.65 10^6/uL (4.35-5.55) L 10/06/19 05:26 Hgb 10.4 g/dL (13.5-17.0) L 10/06/19 05:26 Hct 30.6 % (37.9-51.0) L 10/06/19 05:26 MCV 84 fl (80-97) 10/06/19 05:26 MCH 28.5 pg (27.0-33.4) 10/06/19 05:26 MCHC 33.9 g/dL (32.0-36.0) 10/06/19 05:26 RDW 15.4 % (11.5-14.0) H 10/06/19 05:26 Plt Count 307 10^3/uL (150-450) 10/06/19 05:26 Sodium 141.4 mmol/L (137-145) 10/04/19 05:15 Potassium 4.7 mmol/L (3.6-5.0) 10/04/19 05:15 Chloride 107 mmol/L (98-107) 10/04/19 05:15 Carbon Dioxide 21 mmol/L (22-30) L 10/04/19 05:15 Anion Gap 13 (5-19) 10/04/19 05:15 BUN 19 mg/dL (7-20) 10/04/19 05:15 Creatinine 1.05 mg/dL (0.52-1.25) 10/04/19 05:15 Est GFR ( Amer) > 60 (>60) 10/04/19 05:15 Est GFR (MDRD) Non-Af > 60 (>60) 10/04/19 05:15 Glucose 148 mg/dL (75-110) H 10/04/19 05:15 POC Glucose 152 mg/dL (70-110) H 10/06/19 06:34 Calcium 9.1 mg/dL (8.4-10.2) 10/04/19 05:15 Impressions: Knee X-Ray 10/03/19 10:47 IMPRESSION: Uncomplicated left TKA with expected immediate postoperative findings. Plan Plan of Treatment: Patient to be discharged with long-term facility for range of motion, strengthening of the left knee and weightbearing as tolerated ambulation. Follow-up with Dr. Hollins and [facility] for surgery in 2 weeks for staple removal. Time Spent: Less than 30 Minutes Stroke Is this a Stroke Patient?: No Stroke Pt being discharged on Anti-thrombolytic therapy?: Yes Acute Heart Failure - Is this a Heart Failure Patient?: No
[2019-10-06] MEDS: METFORMIN HCL 500 MG TABLET PO SCH ×2 (07:35→16:35)
[2019-10-06] MEDS: FLUOXETINE HCL 20 MG CAPSULE PO SCH (07:35)
[2019-10-06] MEDS: INSULIN LISPRO 100 UNIT/ML 3 ML VIAL SUBCUT SCH ×4 (07:35→21:21)
[2019-10-06] MEDS ORDERED: MAGNESIUM CITRATE 296 ML BOTTLE PO ONE (09:45)
[2019-10-06] MEDS: METOPROLOL SUCCINATE 25 MG TAB.SR.24H PO SCH (10:05)
[2019-10-06] MEDS: ASPIRIN 81 MG TABLET, ENT COATED PO SCH (10:05)
[2019-10-06] MEDS: SENNOSIDES/DOCUSATE 8.6-50 MG 1 EACH TABLET PO SCH ×2 (10:06→17:07)
[2019-10-06] MEDS: LISINOPRIL 10 MG TABLET PO SCH (10:06)
[2019-10-06] MEDS: LORATADINE 10 MG TABLET PO SCH (10:07)
[2019-10-06] MEDS: FUROSEMIDE 20 MG TABLET PO SCH (10:07)
[2019-10-06] MEDS: AMLODIPINE BESYLATE 10 MG TABLET PO SCH (10:07)
[2019-10-06] MEDS: ALLOPURINOL 100 MG TABLET PO SCH (10:07)
[2019-10-06] MEDS: PRENATAL VITAMIN W DHA CAPSULE PO SCH (10:07)
[2019-10-06] MEDS: FINASTERIDE 5 MG TABLET PO SCH (10:08)
[2019-10-06] MEDS: DONEPEZIL HCL 5 MG TABLET PO SCH (10:08)
[2019-10-06] MEDS: FLUTICASONE NASAL SPRAY 50 MCG/SPRY 120 SPRAY/16 GM NASL SCH (10:11)
[2019-10-06] MEDS: ACETAMINOPHEN 325 MG TABLET PO PRN (16:35)
[2019-10-06] MEDS: TAMSULOSIN HCL 0.4 MG CAP.SR.24H PO SCH (21:18)
[2019-10-06] MEDS: ATORVASTATIN CALCIUM 20 MG TABLET PO SCH (21:19)
[2019-10-06] MEDS: GEMFIBROZIL 600 MG TABLET PO SCH (21:19)
[2019-10-06] MEDS: MONTELUKAST SODIUM 10 MG TABLET PO SCH (21:19)
[2019-10-06] MEDS: ZOLPIDEM TARTRATE 5 MG TABLET PO PRN (23:45)
[2019-10-07] MEDS: GABAPENTIN 400 MG CAPSULE PO SCH ×3 (06:27→21:24)
[2019-10-07] MEDS: OXYCODONE HCL IR 5 MG TABLET PO PRN ×2 (06:27→20:06)
[2019-10-07] MEDS: PANTOPRAZOLE SODIUM 20 MG TABLET.DR PO SCH (06:28)
[2019-10-07] MEDS: FLUOXETINE HCL 20 MG CAPSULE PO SCH (07:34)
[2019-10-07] MEDS: METFORMIN HCL 500 MG TABLET PO SCH ×2 (07:34→16:41)
[2019-10-07] MEDS: INSULIN LISPRO 100 UNIT/ML 3 ML VIAL SUBCUT SCH ×4 (07:34→21:24)
--- NOTE | 2019-10-07 09:21 | PDOC PROGRESS REPORT ---
Subjective Progress Note for:: 10/07/19 Reason For Visit: M17.12 UNILATERAL PRIMARY OSTEOARTHRITIS, LEFT KNE 74-year-old white male status post left knee arthroplasty postop day #4 awaiting retirement facility placement. Modest progress with physical therapy yesterday. Physical Exam Vital Signs: Temp Pulse Resp BP Pulse Ox 37.4 C 81 16 141/62 H 93 10/06/19 23:48 10/06/19 23:48 10/06/19 23:48 10/06/19 23:48 10/06/19 23:48 Intake & Output 10/06/19 10/07/19 10/08/19 06:59 06:59 06:59 Intake Total 1455 720 Output Total 1700 1175 Balance -245 -455 Weight 106.2 kg Physical Exam: Unchanged from yesterday Results Laboratory Results: 10/06/19 05:26 10/04/19 05:15 Impressions: Knee X-Ray 10/03/19 10:47 IMPRESSION: Uncomplicated left TKA with expected immediate postoperative findings. Status: Imported from PACS Assessment & Plan - Diagnosis (1) Arthritis of left knee Is this a current diagnosis for this admission?: Yes Plan: Continue efforts with mobilization with physical therapy and weightbearing as tolerated basis. Awaiting retirement facility placement. - Time Time Spent with patient: 15-24 minutes Anticipated discharge: SNF Within: when bed available
[2019-10-07] MEDS: LISINOPRIL 10 MG TABLET PO SCH (09:27)
[2019-10-07] MEDS: ASPIRIN 81 MG TABLET, ENT COATED PO SCH (09:28)
[2019-10-07] MEDS: FUROSEMIDE 20 MG TABLET PO SCH (09:28)
[2019-10-07] MEDS: ALLOPURINOL 100 MG TABLET PO SCH (09:28)
[2019-10-07] MEDS: PRENATAL VITAMIN W DHA CAPSULE PO SCH (09:28)
[2019-10-07] MEDS: AMLODIPINE BESYLATE 10 MG TABLET PO SCH (09:28)
[2019-10-07] MEDS: FINASTERIDE 5 MG TABLET PO SCH (09:28)
[2019-10-07] MEDS: METOPROLOL SUCCINATE 25 MG TAB.SR.24H PO SCH (09:28)
[2019-10-07] MEDS: LORATADINE 10 MG TABLET PO SCH (09:28)
[2019-10-07] MEDS: SENNOSIDES/DOCUSATE 8.6-50 MG 1 EACH TABLET PO SCH ×2 (09:28→17:53)
[2019-10-07] MEDS: DONEPEZIL HCL 5 MG TABLET PO SCH (09:28)
[2019-10-07] MEDS: FLUTICASONE NASAL SPRAY 50 MCG/SPRY 120 SPRAY/16 GM NASL SCH (09:29)
[2019-10-07] MEDS: ACETAMINOPHEN 325 MG TABLET PO PRN (13:29)
[2019-10-07] MEDS: ATORVASTATIN CALCIUM 20 MG TABLET PO SCH (21:23)
[2019-10-07] MEDS: GEMFIBROZIL 600 MG TABLET PO SCH (21:24)
[2019-10-07] MEDS: TAMSULOSIN HCL 0.4 MG CAP.SR.24H PO SCH (21:24)
[2019-10-07] MEDS: MONTELUKAST SODIUM 10 MG TABLET PO SCH (21:24)
[2019-10-07] MEDS: ZOLPIDEM TARTRATE 5 MG TABLET PO PRN (23:20)
[2019-10-08] MEDS: ACETAMINOPHEN 325 MG TABLET PO PRN ×2 (00:28→17:12)
[2019-10-08] MEDS: PANTOPRAZOLE SODIUM 20 MG TABLET.DR PO SCH (05:09)
[2019-10-08] MEDS: GABAPENTIN 400 MG CAPSULE PO SCH ×3 (05:09→21:49)
[2019-10-08] MEDS: OXYCODONE HCL IR 5 MG TABLET PO PRN ×3 (05:09→18:30)
[2019-10-08] MEDS: METFORMIN HCL 500 MG TABLET PO SCH ×2 (07:39→17:11)
[2019-10-08] MEDS: FLUOXETINE HCL 20 MG CAPSULE PO SCH (07:39)
[2019-10-08] MEDS: INSULIN LISPRO 100 UNIT/ML 3 ML VIAL SUBCUT SCH ×4 (07:39→23:23)
[2019-10-08] MEDS: DONEPEZIL HCL 5 MG TABLET PO SCH (09:33)
[2019-10-08] MEDS: METOPROLOL SUCCINATE 25 MG TAB.SR.24H PO SCH (09:33)
[2019-10-08] MEDS: PRENATAL VITAMIN W DHA CAPSULE PO SCH (09:33)
[2019-10-08] MEDS: SENNOSIDES/DOCUSATE 8.6-50 MG 1 EACH TABLET PO SCH ×2 (09:33→17:12)
[2019-10-08] MEDS: ALLOPURINOL 100 MG TABLET PO SCH (09:33)
[2019-10-08] MEDS: LORATADINE 10 MG TABLET PO SCH (09:33)
[2019-10-08] MEDS: AMLODIPINE BESYLATE 10 MG TABLET PO SCH (09:33)
[2019-10-08] MEDS: LISINOPRIL 10 MG TABLET PO SCH (09:33)
[2019-10-08] MEDS: ASPIRIN 81 MG TABLET, ENT COATED PO SCH (09:33)
[2019-10-08] MEDS: FLUTICASONE NASAL SPRAY 50 MCG/SPRY 120 SPRAY/16 GM NASL SCH (09:34)
[2019-10-08] MEDS: FINASTERIDE 5 MG TABLET PO SCH (09:34)
[2019-10-08] MEDS: FUROSEMIDE 20 MG TABLET PO SCH (09:34)
[2019-10-08] MEDS: GEMFIBROZIL 600 MG TABLET PO SCH (21:49)
[2019-10-08] MEDS: TAMSULOSIN HCL 0.4 MG CAP.SR.24H PO SCH (21:49)
[2019-10-08] MEDS: MONTELUKAST SODIUM 10 MG TABLET PO SCH (21:49)
[2019-10-08] MEDS: ATORVASTATIN CALCIUM 20 MG TABLET PO SCH (21:49)
[2019-10-08] MEDS: ZOLPIDEM TARTRATE 5 MG TABLET PO PRN (21:51)
[2019-10-09] MEDS: OXYCODONE HCL IR 5 MG TABLET PO PRN ×2 (00:41→08:28)
[2019-10-09] MEDS: GABAPENTIN 400 MG CAPSULE PO SCH (05:18)
[2019-10-09] MEDS: PANTOPRAZOLE SODIUM 20 MG TABLET.DR PO SCH (05:18)
--- NOTE | 2019-10-09 07:08 | PDOC DISCHARGE SUMMARY ---
Impression - Admit/DC Date/PCP Admission Date/Primary Care Provider: 10/03/19 07:12 GAVI FALLON DO Discharge Date: 10/09/19 - Discharge Diagnosis (1) Arthritis of left knee Is this a current diagnosis for this admission?: Yes - Additional Information Resuscitation Status: Full Code Discharge Diet: Regular Discharge Activity: Balance Activity w/Rest, No tub bath Referrals: LAKE HOLLINS MD [ACTIVE STAFF] - 10/18/19 9:00 am Home Medications: Aspirin [Aspirin EC] 81 mg PO DAILY 03/28/13 Atorvastatin Calcium [Lipitor 10 mg Tablet] 20 mg PO DAILY 03/28/13 Furosemide [Lasix 20 mg Tablet] 20 mg PO DAILY 03/28/13 Gabapentin [Neurontin 400 mg Capsule] 400 mg PO TID 03/28/13 Loratadine [Loratadine Allergy] 10 mg PO DAILY 03/28/13 Amlodipine Besylate 10 mg PO DAILY 07/10/13 Clotrimazole 1% Topical [Lotrimin 1% Topical Solution] 1 applic TP ASDIR PRN 07/10/13 Ferrous Fumarate [Iron] 65 mg PO DAILY 07/10/13 Metformin HCl [Glucophage 500 Mg Tablet] 1,000 mg PO BID 07/10/13 Tamsulosin HCl 0.4 mg PO QHS 07/10/13 Fluticasone Propionate [Flonase Nasal [place] 50 Mcg/[place] 16 gm] 2 sprays NASL DAILY 12/10/14 Allopurinol [Zyloprim 100 mg Tablet] 100 mg PO DAILY 10/19/18 Cyanocobalamin (Vitamin B-12) [Vitamin B12] 1,000 mcg PO DAILY 10/19/18 Donepezil HCl [Aricept 5 mg Tablet] 5 mg PO DAILY 10/19/18 Finasteride [Proscar 5 mg Tablet] 5 mg PO DAILY 10/19/18 Fluoxetine HCl [Prozac 20 mg Capsule] 40 mg PO QAM 10/19/18 Gemfibrozil 300 mg PO QHS 10/19/18 Lisinopril [Prinivil 40 mg Tablet] 40 mg PO DAILY 10/19/18 Multivit with Iron,Minerals [Spectravite Senior] 1 tab PO DAILY 10/19/18 Testosterone [Androgel] 1 applic TOP DAILY 10/19/18 Diclofenac Sodium [Voltaren] 75 mg PO BID 10/30/18 Metoprolol Succinate [Toprol Xl 25 mg Tab.sr] 25 mg PO DAILY 10/30/18 Montelukast Sodium [Singulair 10 mg Tablet] 10 mg PO QHS 10/30/18 Omeprazole 20 mg PO DAILY 10/30/18 Nitroglycerin 0.4 mg SL Q10MP PRN #25 tab.subl 12/22/18 History of Present Illiness History of Present Illness: 89-year-old white male with progressive left knee pain and functional disability second osteoarthritis. Patient is admitted for elective left knee arthroplasty. Hospital Course Hospital Course: Patient is admitted through the operating room and undergoes an uncomplicated left knee arthroplasty. Please return to the floor when seen by physical therapy for weightbearing as tolerated relation. Physical therapy progress is slow secondary to physical conditioning, comorbidities, and low pain threshold. Because of delays for group home facility placement the patient has obtained a sufficient functional level for discharge home with home health services and DME. Physical Exam Vital Signs: Temp Pulse Resp BP Pulse Ox 36.8 C 67 18 149/74 H 96 10/09/19 00:02 10/09/19 00:02 10/09/19 00:02 10/09/19 00:02 10/09/19 00:02 Intake & Output 10/08/19 10/09/19 10/10/19 06:59 06:59 06:59 Intake Total 520 674 Output Total 2150 1800 Balance -1630 -1126 Weight 102 kg 101.3 kg General appearance: PRESENT: no acute distress Respiratory exam: PRESENT: unlabored Cardiovascular exam: PRESENT: RRR GI/Abdominal exam: PRESENT: soft Rectal exam: PRESENT: deferred Musculoskeletal exam: PRESENT: other - Left knee OpSite dressing is clean dry and intact. Minimal pedal edema. Distal neurovascular examination is intact. Neurological exam: PRESENT: alert, awake, oriented to person, oriented to place, oriented to time, oriented to situation. ABSENT: motor sensory deficit Psychiatric exam: PRESENT: appropriate affect, normal mood. ABSENT: homicidal ideation, suicidal ideation Skin exam: PRESENT: dry, intact, warm. ABSENT: cyanosis, rash Results Laboratory Results: WBC 11.6 10^3/uL (4.0-10.5) H 10/06/19 05:26 RBC 3.65 10^6/uL (4.35-5.55) L 10/06/19 05:26 Hgb 10.4 g/dL (13.5-17.0) L 10/06/19 05:26 Hct 30.6 % (37.9-51.0) L 10/06/19 05:26 MCV 84 fl (80-97) 10/06/19 05:26 MCH 28.5 pg (27.0-33.4) 10/06/19 05:26 MCHC 33.9 g/dL (32.0-36.0) 10/06/19 05:26 RDW 15.4 % (11.5-14.0) H 10/06/19 05:26 Plt Count 307 10^3/uL (150-450) 10/06/19 05:26 Sodium 141.4 mmol/L (137-145) 10/04/19 05:15 Potassium 4.7 mmol/L (3.6-5.0) 10/04/19 05:15 Chloride 107 mmol/L (98-107) 10/04/19 05:15 Carbon Dioxide 21 mmol/L (22-30) L 10/04/19 05:15 Anion Gap 13 (5-19) 10/04/19 05:15 BUN 19 mg/dL (7-20) 10/04/19 05:15 Creatinine 1.05 mg/dL (0.52-1.25) 10/04/19 05:15 Est GFR ( Amer) > 60 (>60) 10/04/19 05:15 Est GFR (MDRD) Non-Af > 60 (>60) 10/04/19 05:15 Glucose 148 mg/dL (75-110) H 10/04/19 05:15 POC Glucose 149 mg/dL (70-110) H 10/09/19 06:14 Calcium 9.1 mg/dL (8.4-10.2) 10/04/19 05:15 Impressions: Knee X-Ray 10/03/19 10:47 IMPRESSION: Uncomplicated left TKA with expected immediate postoperative findings. Plan Plan of Treatment: To be discharged home with home health services and DME. Follow-up with Dr. Mart Chand Talcott for surgery in 2 weeks for staple removal. Time Spent: Less than 30 Minutes Stroke Is this a Stroke Patient?: No Stroke Pt being discharged on Anti-thrombolytic therapy?: Yes Acute Heart Failure - Is this a Heart Failure Patient?: No
[2019-10-09] MEDS: INSULIN LISPRO 100 UNIT/ML 3 ML VIAL SUBCUT SCH (08:04)
[2019-10-09] MEDS: FLUOXETINE HCL 20 MG CAPSULE PO SCH (08:28)
[2019-10-09] MEDS: METFORMIN HCL 500 MG TABLET PO SCH (08:28)
[2019-10-09 09:14] VITALS: BP 132/62
[2019-10-09] MEDS: PRENATAL VITAMIN W DHA CAPSULE PO SCH (10:11)
[2019-10-09] MEDS: FLUTICASONE NASAL SPRAY 50 MCG/SPRY 120 SPRAY/16 GM NASL SCH (10:11)
[2019-10-09] MEDS: DONEPEZIL HCL 5 MG TABLET PO SCH (10:11)
[2019-10-09] MEDS: FINASTERIDE 5 MG TABLET PO SCH (10:11)
[2019-10-09] MEDS: SENNOSIDES/DOCUSATE 8.6-50 MG 1 EACH TABLET PO SCH (10:11)
[2019-10-09] MEDS: ALLOPURINOL 100 MG TABLET PO SCH (10:12)
[2019-10-09] MEDS: AMLODIPINE BESYLATE 10 MG TABLET PO SCH (10:12)
[2019-10-09] MEDS: LORATADINE 10 MG TABLET PO SCH (10:12)
[2019-10-09] MEDS: ASPIRIN 81 MG TABLET, ENT COATED PO SCH (10:12)
[2019-10-09] MEDS: LISINOPRIL 10 MG TABLET PO SCH (10:12)
[2019-10-09] MEDS: METOPROLOL SUCCINATE 25 MG TAB.SR.24H PO SCH (10:12)
[2019-10-09] MEDS: FUROSEMIDE 20 MG TABLET PO SCH (10:12)
== END 2019-10-09 12:32 | disposition home health service (06) | DRG 470 ==
LOC: INOR 07:12 → 4S 13:45
PROVIDERS: ADMIT Orthopaedic Surgery; ATTEND Orthopaedic Surgery
PROC: 0SRD0J9 Replacement of Left Knee Joint with Synthetic Substitute, Cemented, Open Approach (ICD-10-PCS; principal; 2019-10-03 09:00)
DX: M17.12 Unilateral primary osteoarthritis, left knee (principal); I10 Essential (primary) hypertension; E78.00 Pure hypercholesterolemia, unspecified; E11.9 Type 2 diabetes mellitus without complications; G47.30 Sleep apnea, unspecified; M10.9 Gout, unspecified; G47.419 Narcolepsy without cataplexy; Z87.891 Personal history of nicotine dependence; Z83.3 Family history of diabetes mellitus; Z82.49 Family history of ischemic heart disease and other diseases of the circulatory system; Z79.84 Long term (current) use of oral hypoglycemic drugs; Z79.899 Other long term (current) drug therapy
CPT/HCPCS: 01402; 36415; 80048; 82962; 84132; 85027; 88305; 88311; 94799; C1713; C1776; J0690; J1741; J1815; J2250; J2704; J3010; J3370; J3490; J7050; J7060; J7120; S0119

== ENCOUNTER → 2020-01-10 | Outpatient (CLI) | payer OTHER, MEDICARE ==
[2020-01-10 14:10] LABS: ABSOLUTE EOSINOPHILS # (AUTO) 0.5 10^3/uL (0.0-0.6); ABSOLUTE LYMPHOCYTES (AUTO) 1.2 10^3/uL (0.5-4.7); ABSOLUTE MONOCYTES (AUTO) 0.5 10^3/uL (0.1-1.4); ABSOLUTE NEUT (AUTO) 5.2 10^3/uL (1.7-8.2); BASOPHILS % (AUTO) 0.7 % (0-2); HEMATOCRIT 39.7 % (37.9-51.0); HEMOGLOBIN 13.2 g/dL (13.5-17.0); LYMPHOCYTES % (AUTO) 16.3 % (13-45); MEAN CORPUSCULAR HEMOGLOBIN 27.5 pg (27.0-33.4); MEAN CORPUSCULAR HGB CONC 33.3 g/dL (32.0-36.0); MEAN CORPUSCULAR VOLUME 83 fl (80-97); MONOCYTES % (AUTO) 7.2 % (3-13); PLATELET COUNT 346 10^3/uL (150-450); RED BLOOD COUNT 4.81 10^6/uL (4.35-5.55); RED CELL DISTRIBUTION WIDTH 15.9 % (11.5-14.0); SEGMENTED NEUTROPHILS % (AUTO) 68.8 % (42-78); TOTAL CELLS COUNTED % (AUTO) 100 %; WHITE BLOOD COUNT 7.5 10^3/uL (4.0-10.5)
[2020-01-10 14:13] LABS: INTERNATIONAL RATION (INR) 0.88; PROTHROMBIN TIME 11.9 SEC (11.4-15.4)
[2020-01-10 14:14] LABS: PARTIAL THROMBOPLASTIN TIME 37.8 SEC (23.5-35.8)
[2020-01-10 14:44] LABS: ANION GAP 9 (5-19); BLOOD UREA NITROGEN 30 mg/dL (7-20); CARBON DIOXIDE 27 mmol/L (22-30); CHLORIDE 105 mmol/L (98-107); GLUCOSE 118 mg/dL (75-110); POTASSIUM 4.9 mmol/L (3.6-5.0)
== END ==
LOC: OD 13:03
PROVIDERS: ATTEND Specialist
DX: I35.0 Nonrheumatic aortic (valve) stenosis (principal); I10 Essential (primary) hypertension; R94.31 Abnormal electrocardiogram [ECG] [EKG]; I27.29 Other secondary pulmonary hypertension; E08.9 Diabetes mellitus due to underlying condition without complications; E03.9 Hypothyroidism, unspecified; R01.1 Cardiac murmur, unspecified; G47.33 Obstructive sleep apnea (adult) (pediatric); G47.419 Narcolepsy without cataplexy; M17.0 Bilateral primary osteoarthritis of knee; R06.00 Dyspnea, unspecified; R07.9 Chest pain, unspecified; Z79.899 Other long term (current) drug therapy
CPT/HCPCS: 36415; 80051; 82565; 82947; 83735; 84520; 85025; 85610; 85730

== ENCOUNTER 2020-05-07 07:02 | Day surgery (SDC) | payer MEDICARE, OTHER ==
[~2020-05-07 07:02] MED LIST changes: -BUPIVACAINE INJ/PF LIPOSOME/PF 266 MG/20 ML SDV INJ PRN; -CEFAZOLIN INJ 1 GM VIAL IV PRN; -IBUPROFEN 800 MG in NORMAL SALINE 250 ML IV PRN; +KETOROLAC TROMETHAMINE 0.45% 4 DROP/0.4 ML DROPERETTE OS PRN; -LACTATED RINGERS 1000 ML IV PRN; -LIDOCAINE 0.5% INJ-PF (5 MG/ML) 50 ML SDV SUBCUT PRN; -OXYCODONE HCL SR 10 MG TABLET PO PRN; -PANTOPRAZOLE SODIUM 20 MG TABLET.DR PO PRN; -VANCOMYCIN HCL 1,000 MG in DEXTROSE 5%-WATER 250 ML IV PRN
[2020-05-07] MEDS ORDERED: EPINEPHRINE INJ/PF 1 MG/1 ML AMPULE ONE (07:14)
[2020-05-07] MEDS ORDERED: LIDOCAINE 1%/PHENYLEPHRINE 1.5% 1 ML VIAL ONE (07:14)
[2020-05-07] MEDS ORDERED: CHONDR SU A NA/HYALUR INTRAOC KIT (SURGICARE) ONE (07:15)
[2020-05-07] MEDS: TROPICAMIDE 1% OPH SOLN 15 ML OS PRN ×3 (07:59→08:23)
[2020-05-07] MEDS: BESIFLOXACIN HCL 0.6% OPH SUSP 5 ML BOTTLE OS PRN ×4 (07:59→08:53)
[2020-05-07] MEDS: TETRACAINE HCL 0.5% OPH SOLN 4 ML OS PRN ×3 (07:59→08:33)
[2020-05-07] MEDS: CYCLOPENTOLATE 0.2%/PHENYLEPHRINE 1% OPH SOLN 2 ML OS PRN ×3 (07:59→08:23)
[2020-05-07] MEDS ORDERED: INSULIN REG, HUMAN 100 UNIT/ML 3 ML VIAL (PYX) ONE (08:06)
[2020-05-07] MEDS ORDERED: MIDAZOLAM 2 MG/2 ML INJ ONE (08:17)
[2020-05-07] MEDS ORDERED: FENTANYL CITRATE INJ/PF 100 MCG/2 ML AMPUL ONE (08:17)
[2020-05-07] MEDS: DORZOLAMIDE HCL 2%/TIMOLOL MALEAT 0.5% OPH SOLN 10 ML OS PRN ×2 (08:53)
--- NOTE | 2020-05-07 12:52 | Operative Report ---
Operative Report-[facility] Operative Report: DATE OF SURGERY: May 07, 2020 PREOPERATIVE DIAGNOSIS: NUCLEAR CATARACT, LEFT EYE. POSTOPERATIVE DIAGNOSIS: NUCLEAR CATARACT, LEFT EYE. PROCEDURE PERFORMED: PHACOEMULSIFICATION WITH POSTERIOR CHAMBER INTRAOCULAR LENS IMPLANT, LEFT EYE. SURGEON: Srini Rogers DO MEDICATIONS AND ANESTHESIA: Versed: IV Versed Tetracaine drops: 1 to 2 drops given as needed COMPLICATION: None INDICATIONS FOR SURGERY: Medical necessity: Best corrected visual acuity worse than 20/40 secondary to cataracts with impairment of ability to carry out needs or desired activities, blurred vision, visual distortion, reduced contrast sensitivity and/or glare with association functional impairment and supporting documentation/testing, and cataracts causing symptomatic impairment of visual functions not corrected with tolerable changes in glasses or contact lenses interfering with activities of daily life. PROCEDURE: Consent: The risks, benefits and alternatives of this procedures was discussed with the patient. The patient read and signed the consent forms, was identified and was seated in the exam chair. IOL: MX 60 E 25.5 IOL Diopters: Phacoemulsification with posterior chamber intraocular lens implant: The face was prepped with 5% povidone iodine solution, and a few drops of 5% povidone iodine solution was instilled into the inferior fornix. A non-fenestrated drape was placed over the eye and the lids were parted with the speculum. A paracentesis was made with a 15 degree blade, and 1% lidocaine MPF followed by viscoelastic was injected into the anterior chamber. A 2.4 mm metal micro- keratome was used to create a temporal clear corneal incision. A circular anterior capsulorrhexis was created, followed by hydro-dissection and hydro- delineation. The phacoemulsification hand piece was inserted and the nucleus was removed with the Phaco chop technique. The irrigation-aspiration hand piece was used to remove the residual cortex, and vacuum the posterior capsule. The capsular bag was inflated and viscoelastic and the above-mentioned IOL was injected into the eye with care to insert both leaning and trailing haptics in the capsular bag. The irrigation/aspiration hand piece was reinserted to remove residual viscoelastic from the capsular bag and anterior chamber. The corneal incision was hydrated, and anterior chamber was inflated with sterile BSS via the paracentesis site, and found to be watertight. Postop medication:1 drop of prednisolone into operative by followed by 1 drop of Cosopt into operative eye followed by 1 drop of Besivance intraoperative by Other:
== END 2020-05-07 09:31 ==
LOC: SC 07:02
PROVIDERS: ATTEND Ophthalmology
DX: H25.12 Age-related nuclear cataract, left eye (principal); E11.9 Type 2 diabetes mellitus without complications; I10 Essential (primary) hypertension; K21.9 Gastro-esophageal reflux disease without esophagitis; E78.00 Pure hypercholesterolemia, unspecified; J44.9 Chronic obstructive pulmonary disease, unspecified; I25.10 Atherosclerotic heart disease of native coronary artery without angina pectoris; E66.9 Obesity, unspecified; Z79.899 Other long term (current) drug therapy; Z79.82 Long term (current) use of aspirin; Z79.84 Long term (current) use of oral hypoglycemic drugs; Z87.891 Personal history of nicotine dependence
CPT/HCPCS: 82962; 66984; V2632; J2250; J3490 ×2; J0171; J3010; 142; J1815

== ENCOUNTER 2020-05-21 11:51 | Day surgery (SDC) | payer MEDICARE, OTHER ==
[~2020-05-21 11:51] MED LIST changes: +KETOROLAC TROMETHAMINE 0.45% 4 DROP/0.4 ML DROPERETTE OD PRN; -KETOROLAC TROMETHAMINE 0.45% 4 DROP/0.4 ML DROPERETTE OS PRN
[2020-05-21] MEDS: TROPICAMIDE 1% OPH SOLN 15 ML OD PRN ×3 (12:10→12:29)
[2020-05-21] MEDS: BESIFLOXACIN HCL 0.6% OPH SUSP 5 ML BOTTLE OD PRN ×4 (12:10→12:47)
[2020-05-21] MEDS: TETRACAINE HCL 0.5% OPH SOLN 4 ML OD PRN ×4 (12:10→12:30)
[2020-05-21] MEDS: CYCLOPENTOLATE 0.2%/PHENYLEPHRINE 1% OPH SOLN 2 ML OD PRN ×3 (12:10→12:29)
[2020-05-21] MEDS ORDERED: ONDANSETRON HCL INJ/PF 4 MG/2 ML SDV ONE (12:11)
[2020-05-21] MEDS ORDERED: MIDAZOLAM 2 MG/2 ML INJ ONE (12:11)
[2020-05-21] MEDS ORDERED: FENTANYL CITRATE INJ/PF 100 MCG/2 ML AMPUL ONE (12:12)
[2020-05-21] MEDS: CHONDR SU A NA/HYALUR INTRAOC KIT (SURGICARE) ONE ×2 (12:38)
[2020-05-21] MEDS: PHENYLEPHRINE/KETOROLAC 1%-0.3% 4 ML VIAL ONE ×2 (12:38)
[2020-05-21] MEDS: LIDOCAINE 1% INJ-PF (10 MG/ML) 30 ML SDV ONE ×2 (12:38)
[2020-05-21] MEDS: DORZOLAMIDE HCL 2%/TIMOLOL MALEAT 0.5% OPH SOLN 10 ML OD PRN ×2 (12:47)
--- NOTE | 2020-05-21 14:23 | Operative Report ---
Operative Report-[facility] Operative Report: DATE OF SURGERY: May 21, 2020 PREOPERATIVE DIAGNOSIS: NUCLEAR CATARACT, RIGHT EYE. POSTOPERATIVE DIAGNOSIS: NUCLEAR CATARACT, RIGHT EYE. PROCEDURE PERFORMED: PHACOEMULSIFICATION WITH POSTERIOR CHAMBER INTRAOCULAR LENS IMPLANT, RIGHT EYE. SURGEON: Srini Rogers DO MEDICATIONS AND ANESTHESIA: Versed: IV Versed Tetracaine drops: 1 to 2 drops given as needed COMPLICATION: None INDICATIONS FOR SURGERY: Medical necessity: Best corrected visual acuity worse than 20/40 secondary to cataracts with impairment of ability to carry out needs or desired activities, blurred vision, visual distortion, reduced contrast sensitivity and/or glare with association functional impairment and supporting documentation/testing, and cataracts causing symptomatic impairment of visual functions not corrected with tolerable changes in glasses or contact lenses interfering with activities of daily life. PROCEDURE: Consent: The risks, benefits and alternatives of this procedures was discussed with the patient. The patient read and signed the consent forms, was identified and was seated in the exam chair. IOL: MX 60 E 23.0 IOL Diopters: Phacoemulsification with posterior chamber intraocular lens implant: The face was prepped with 5% povidone iodine solution, and a few drops of 5% povidone iodine solution was instilled into the inferior fornix. A non-fenestrated drape was placed over the eye and the lids were parted with the speculum. A paracentesis was made with a 15 degree blade, and 1% lidocaine MPF followed by viscoelastic was injected into the anterior chamber. A 2.4 mm metal micro- keratome was used to create a temporal clear corneal incision. A circular anterior capsulorrhexis was created, followed by hydro-dissection and hydro- delineation. The phacoemulsification hand piece was inserted and the nucleus was removed with the Phaco chop technique. The irrigation-aspiration hand piece was used to remove the residual cortex, and vacuum the posterior capsule. The capsular bag was inflated and viscoelastic and the above-mentioned IOL was injected into the eye with care to insert both leaning and trailing haptics in the capsular bag. The irrigation/aspiration hand piece was reinserted to remove residual viscoelastic from the capsular bag and anterior chamber. The corneal incision was hydrated, and anterior chamber was inflated with sterile BSS via the paracentesis site, and found to be watertight. Postop medication: 1 drop of prednisolone into operative by followed by 1 drop of Cosopt into operative eye followed by 1 drop of Besivance intraoperative by other:
== END 2020-05-21 13:24 | disposition home or self-care (01) ==
LOC: SC 11:51
PROVIDERS: ATTEND Ophthalmology
DX: H25.11 Age-related nuclear cataract, right eye (principal); Z98.42 Cataract extraction status, left eye; Z79.899 Other long term (current) drug therapy; Z79.82 Long term (current) use of aspirin; Z87.891 Personal history of nicotine dependence
CPT/HCPCS: 82962; 66984; V2632; J2250; J3490 ×3; J3010; J2405; J1097; 142

== ENCOUNTER 2020-06-14 16:22 | Inpatient (IN) | payer OTHER ==
[2020-06-14 17:31] LABS: ABSOLUTE EOSINOPHILS # (AUTO) 0.2 10^3/uL (0.0-0.6); ABSOLUTE LYMPHOCYTES (AUTO) 0.8 10^3/uL (0.5-4.7); ABSOLUTE MONOCYTES (AUTO) 0.9 10^3/uL (0.1-1.4); ABSOLUTE NEUT (AUTO) 3.9 10^3/uL (1.7-8.2); BASOPHILS % (AUTO) 0.5 % (0-2); EOSINOPHILS % (AUTO) 2.9 % (0-6); HEMATOCRIT 37.7 % (37.9-51.0); HEMOGLOBIN 12.5 g/dL (13.5-17.0); LYMPHOCYTES % (AUTO) 13.4 % (13-45); MEAN CORPUSCULAR HEMOGLOBIN 28.1 pg (27.0-33.4); MEAN CORPUSCULAR HGB CONC 33.1 g/dL (32.0-36.0); MEAN CORPUSCULAR VOLUME 85 fl (80-97); MONOCYTES % (AUTO) 15.5 % (3-13); PLATELET COUNT 354 10^3/uL (150-450); RED BLOOD COUNT 4.45 10^6/uL (4.35-5.55); RED CELL DISTRIBUTION WIDTH 14.4 % (11.5-14.0); SEGMENTED NEUTROPHILS % (AUTO) 67.7 % (42-78); TOTAL CELLS COUNTED % (AUTO) 100 %; WHITE BLOOD COUNT 5.7 10^3/uL (4.0-10.5)
[2020-06-14] MEDS ORDERED: NORMAL SALINE 1000 ML 1,000 ML IV ONE ×2 (17:37→20:16)
[2020-06-14] MEDS ORDERED: HYDROMORPHONE HCL INJ/PF 2 MG/ML AMPULE IV ONE (17:44)
[2020-06-14] MEDS ORDERED: ONDANSETRON HCL INJ/PF 4 MG/2 ML SDV IV ONE (17:44)
--- NOTE | 2020-06-14 17:44 | ER Document Report ---
ED General - General Chief Complaint: High Blood Sugar Stated Complaint: HIGH BLOOD SUGAR Time Seen by Provider: 06/14/20 17:09 Notes: 74-year-old man presenting with a complaint of abdominal pain nausea and vomiting which began last night. He states the pain is worsened. He contacted his primary physician and was directed to come to the emergency department because of an elevated blood sugar. Denies fever, diarrhea, or prior history of similar episodes. TRAVEL OUTSIDE OF THE [place] IN LAST 30 DAYS: No - Related Data Allergies/Adverse Reactions: anesthesia medicine unknown Allergy (Severe, Uncoded 06/14/20 16:43) stopped breathing Past Medical History - Social History Smoking Status: Unknown if Ever Smoked Family History: Reviewed & Not Pertinent - Past Medical History Cardiac Medical History: Reports: Hx Coronary Artery Disease, Hx Hypercholesterolemia, Hx Hypertension Denies: Hx Heart Attack Pulmonary Medical History: Reports: Hx Asthma, Hx Pneumonia - "WALKING", Hx Sleep Apnea - has narcolepsy Neurological Medical History: Denies: Hx Cerebrovascular Accident, Hx Seizures Endocrine Medical History: Reports: Hx Diabetes Mellitus Type 1, Hx Diabetes Mellitus Type 2 Renal/ Medical History: Reports: Hx Benign Prostatic Hyperplasia. Denies: Hx Peritoneal Dialysis Malignancy Medical History: GI Medical History: Reports: Hx Gastroesophageal Reflux Disease, Hx Hiatal Hernia. Denies: Hx Hepatitis, Hx Ulcer Musculoskeletal Medical History: Reports Hx Arthritis, Denies Hx Systemic Lupus Erythematosus Psychiatric Medical History: Reports: Hx Anxiety, Hx Depression, Hx Post Traumatic Stress Disorder Traumatic Medical History: Infectious Medical History: Denies: Hx Hepatitis Past Surgical History: Reports: Hx Adenoidectomy, Hx Appendectomy, Hx Herniorrhaphy, Hx Orthopedic Surgery - carpal tunnel, knee shoulder, Hx Tonsillectomy. Denies: Hx Bowel Surgery, Hx Cholecystectomy, Hx Open Heart Surgery, Hx Pacemaker - Immunizations Hx Diphtheria, Pertussis, Tetanus Vaccination: No Hx Pneumococcal Vaccination: 07/15/14 Review of Systems - Review of Systems Notes: Constitutional: Negative for fever. HENT: Negative for sore throat. Eyes: Negative for visual changes. Cardiovascular: Negative for chest pain. Respiratory: Negative for shortness of breath. Gastrointestinal:+abdominal pain,+ nausea and vomiting, no diarrhea. Genitourinary: Negative for dysuria. Musculoskeletal: Negative for back pain. Skin: Negative for rash. Neurological: Negative for headaches, weakness or numbness. 10 point ROS negative except as marked above and in HPI. Physical Exam - Vital signs Vitals: Temp 98.2 F 06/14/20 16:22 - Notes Notes: PHYSICAL EXAMINATION: Physical Exam: General: Well-nourished, well-developed dry appearing elderly male HEENT: NC/AT, pupils equal round and reactive to light, MM moist,nares clear, oropharynx clear, airway patent Neck: supple, no adenopathy, no masses. Good range of motion Lungs: clear, no wheezing, no rales no rhonchi CVS: Regular rate and rhythm no murmur gallop or rub Abdomen: Soft, active, tenderness diffusely abdominal, no guarding or rebound, no masses, no hepatosplenomegaly Ext: No edema, clubbing or cyanosis. Neuro: Alert and responsive, moving all 4 extremities on command, cranial nerves intact, no focal findings Skin: Intact no open lesions, no rash PSYCH: Normal mood, normal affect. Course - Re-evaluation Re-evalutation: 06/14/20 21:22 CT of the abdomen and pelvis reveals several distended proximal small bowel segments with air-fluid levels, indeterminate for localized ileus versus partial small bowel obstruction. No perforation or abscess is seen. I have discussed the findings of the CT scan with the patient and explained that we need an NG tube placed to decompress the small bowel and he states she is in agreement with that plan. The surgicalist , Dr Oates was contacted, he states that the patient should be admitted to the hospitalist service as he is not a candidate for immediate surgery. 06/14/20 21:51 Dr Doshi was called will see patient in the ED for admission ,further evaluation and treatment. - Vital Signs Vital signs: Temp Pulse Resp BP Pulse Ox 97.8 F 72 19 129/77 H 99 06/14/20 19:24 06/14/20 16:51 06/14/20 21:03 06/14/20 21:03 06/14/20 21:03 - Laboratory Result Diagrams: 06/14/20 17:17 06/14/20 17:17 Laboratory results interpreted by me: 06/14/20 06/14/20 06/14/20 17:17 17:17 17:55 Hgb 12.5 L Hct 37.7 L RDW 14.4 H [place] % (Auto) 15.5 H Sodium 134.0 L Carbon Dioxide 20 L BUN 27 H Creatinine 1.49 H Est GFR ( Amer) 56 L Est GFR (MDRD) Non-Af 46 L Glucose 420 H* POC Glucose AST 13 L Urine Protein 30 H Urine Glucose (UA) >=500 H Urine Ketones 20 H 06/14/20 20:22 Hgb Hct RDW [place] % (Auto) Sodium Carbon Dioxide BUN Creatinine Est GFR ( Amer) Est GFR (MDRD) Non-Af Glucose POC Glucose 357 H AST Urine Protein Urine Glucose (UA) Urine Ketones 06/14/20 21:52 I have reviewed laboratory data and used this information for the treatment decisions regarding the patient. - Diagnostic Test Radiology reviewed: Image reviewed, Reports reviewed Radiology results interpreted by me: 06/14/20 21:53 CT of the abdomen and pelvis with IV contrast: Several distended proximal small bowel segments with air-fluid levels, indeterminate for localized ileus versus partial small bowel obstruction. No perforation or abscess. Discharge - Discharge Clinical Impression: Poorly controlled diabetes mellitus, Ileus Abdominal pain Qualifiers: Abdominal location: generalized Qualified Code(s): R10.84 - Generalized abdominal pain Condition: Fair Disposition: ADMITTED INPATIENT Admitting Provider: Tico (Hospitalist) Unit Admitted: Telemetry
[2020-06-14 18:07] LABS: ALBUMIN 3.6 g/dL (3.5-5.0); ALKALINE PHOSPHATASE 110 U/L (38-126); ANION GAP 14 (5-19); ASPARTATE AMINO TRANSFERASE 13 U/L (17-59); BILIRUBIN,DIRECT 0.2 mg/dL (0.0-0.4); BILIRUBIN,TOTAL 0.6 mg/dL (0.2-1.3); BLOOD UREA NITROGEN 27 mg/dL (7-20); CARBON DIOXIDE 20 mmol/L (22-30); CHLORIDE 100 mmol/L (98-107); POTASSIUM 4.7 mmol/L (3.6-5.0); TOTAL PROTEIN 6.4 g/dL (6.3-8.2)
[2020-06-14 18:16] LABS: GLUCOSE 420 mg/dL (75-110)
[2020-06-14 18:40] LABS: APPEARANCE,URINE CLOUDY; BILIRUBIN,URINE NEGATIVE (NEGATIVE); COLOR,URINE AMBER; GLUCOSE, URINE >=500 mg/dL (NEGATIVE); KETONES,URINE 20 mg/dL (NEGATIVE); PROTEIN,URINE 30 mg/dL (NEGATIVE); URINE SPECIFIC GRAVITY 1.026; UROBILINOGEN,URINE NEGATIVE mg/dL (<2.0)
[2020-06-14] MEDS ORDERED: INSULIN REG, HUMAN 100 UNIT/ML 3 ML VIAL (PYX) IV ONE (20:18)
--- NOTE | 2020-06-14 20:20 | RADIOLOGY REPORT (SQ) ---
EXAM DESCRIPTION: RadLex: CT ABDOMEN PELVIS WITH IV CONTRAST CLINICAL HISTORY: 74 years Male; LLQ pain; TECHNIQUE: CT of the abdomen and pelvis using intravenous contrast. All CT scans at this facility use dose modulation, iterative reconstruction, and/or weight based dosing when appropriate to reduce radiation dose to as low as reasonably achievable. COMPARISON: CT 01/17/2018 FINDINGS: Abdomen: Stomach: No significant distention or surrounding edema. Liver: Diffusely hypodense as on prior exam. No focal lesions. No ductal distention. Gallbladder:Nondistended Pancreas:Within normal limits Spleen:Within normal limits Right kidney:No hydronephrosis. No focal lesion. Left kidney: 5 cm upper pole cyst, unchanged. No hydronephrosis. Adrenal glands:Within normal limits Vascular structures:Within normal limits Pelvis: Note that evaluation of the bowel is somewhat limited due to lack of oral contrast. Small bowel: Several moderately distended small bowel segments in the upper abdomen, with air-fluid levels. Distal small bowel is normal in caliber. No clearly delineated transition point is identified. No acute mesenteric edema or mesenteric adenopathy. Appendix: Not identified Colon:No distention or acute pericolonic edema. No free intraperitoneal fluid or air. Bones: Chronic degenerative changes in the lumbar and lower thoracic spine. There are multilevel anterior bridging osteophytes in the lower thoracic spine, suggesting DISH. No acute bone findings. Bladder: Unremarkable. No pelvic mass or adenopathy. IMPRESSION: 1. Several distended proximal small bowel segments with air-fluid levels, indeterminate for localized ileus versus partial small bowel obstruction. 2. No perforation or abscess.
--- NOTE | 2020-06-14 21:01 | PDOC CONSULTATION ---
Consultation Consult Date: 06/14/20 Provider Consulted: JAK PEREZ Consult reason:: Nausea and vomiting History of Present Illness Admission Date/PCP: GAVI FALLON DO Patient complains of: Episode of nausea and vomiting last night. History of Present Illness: LUCIO JOHNSON is a 74 year old male presenting with nausea and vomiting of dinner last night no bilious emesis. Patient has some diffuse crampy abdominal pain as well. Since vomiting last night he has had a subsequent normal bowel movement. He has been passing gas throughout the day. He has had no further episodes of emesis since last night. He came in through the ER for evaluation and was noted with elevated glucose. Patient is diabetic. He has had a history of a open appendectomy in the remote past. As well as bilateral inguinal hernia repairs in the past. Patient notes that he had a colonoscopy done within the past 5 years and was noted with polyps at that time. There is no family history of GI malignancies. Currently patient states that he is not distended and he is not nauseated and he does not have active abdominal pain. Past Medical History Cardiac Medical History: Reports: Coronary Artery Disease, Hyperlipidema, Hypertension Denies: Myocardial Infarction Pulmonary Medical History: Reports: Asthma, Pneumonia - "WALKING", Sleep Apnea - has narcolepsy Neurological Medical History: Denies: Seizures Endocrine Medical History: Reports: Diabetes Mellitus Type 1, Diabetes Mellitus Type 2 Renal/ Medical History: Malignancy Medical History: GI Medical History: Reports: Gastroesophageal Reflux Disease, Hiatal Hernia Denies: Hepatitis Musculoskeltal Medical History: Reports: Arthritis Psychiatric Medical History: Reports: Depression, Post Traumatic Stress Disorder Hematology: Denies: Anemia, Hemophilia, Sickle Cell Disease Infectious Medical History: Past Surgical History Past Surgical History: Reports: Appendectomy - Open, Herniorrhaphy - Bilateral groin, Orthopedic Surgery - carpal tunnel, knee shoulder, Tonsillectomy Denies: Cholecystectomy, Pacemaker Social History Smoking Status: Former Smoker Electronic Cigarette use?: No Frequency of Alcohol Use: None Hx Recreational Drug Use: No Hx Prescription Drug Abuse: No Family History Family History: Reviewed & Not Pertinent Parental Family History Reviewed: Yes - Diabetes Children Family History Reviewed: Yes Sibling(s) Family History Reviewed.: Yes Medication/Allergy Home Medications: Aspirin [Aspirin EC] 81 mg PO DAILY 03/28/13 Atorvastatin Calcium [Lipitor 10 mg Tablet] 20 mg PO DAILY 03/28/13 Furosemide [Lasix 20 mg Tablet] 20 mg PO DAILY 03/28/13 Gabapentin [Neurontin 400 mg Capsule] 400 mg PO TID 03/28/13 Loratadine [Loratadine Allergy] 10 mg PO DAILY 03/28/13 Amlodipine Besylate 10 mg PO DAILY 07/10/13 Clotrimazole 1% Topical [Lotrimin 1% Topical Solution] 1 applic TP ASDIR PRN 07/10/13 Ferrous Fumarate [Iron] 65 mg PO DAILY 07/10/13 Metformin HCl [Glucophage 500 Mg Tablet] 1,000 mg PO BID 07/10/13 Tamsulosin HCl 0.4 mg PO QHS 07/10/13 Fluticasone Propionate [Flonase Nasal [place] 50 Mcg/[place] 16 gm] 2 sprays NASL DAILY 12/10/14 Allopurinol [Zyloprim 100 mg Tablet] 100 mg PO DAILY 10/19/18 Cyanocobalamin (Vitamin B-12) [Vitamin B12] 1,000 mcg PO DAILY 10/19/18 Donepezil HCl [Aricept 5 mg Tablet] 5 mg PO DAILY 10/19/18 Finasteride [Proscar 5 mg Tablet] 5 mg PO DAILY 10/19/18 Fluoxetine HCl [Prozac 20 mg Capsule] 40 mg PO QAM 10/19/18 Gemfibrozil 300 mg PO QHS 10/19/18 Lisinopril [Prinivil 40 mg Tablet] 40 mg PO DAILY 10/19/18 Multivit with Iron,Minerals [Spectravite Senior] 1 tab PO DAILY 10/19/18 Testosterone [Androgel] 1 applic TOP DAILY 10/19/18 Diclofenac Sodium [Voltaren] 75 mg PO BID 10/30/18 Metoprolol Succinate [Toprol Xl 25 mg Tab.sr] 25 mg PO DAILY 10/30/18 Montelukast Sodium [Singulair 10 mg Tablet] 10 mg PO QHS 10/30/18 Omeprazole 20 mg PO DAILY 10/30/18 Nitroglycerin 0.4 mg SL Q10MP PRN #25 tab.subl 12/22/18 Allergies/Adverse Reactions: anesthesia medicine unknown Allergy (Severe, Uncoded 06/14/20 16:43) stopped breathing Review of Systems All systems: reviewed and no additional remarkable complaints except as stated Constitutional: PRESENT: as per HPI Respiratory: PRESENT: cough - Occasional nonproductive Gastrointestinal: PRESENT: as per HPI Genitourinary: PRESENT: difficulty urinating Physical Exam Vital Signs: Temp Pulse Resp BP Pulse Ox 97.8 F 72 15 105/61 95 06/14/20 19:24 06/14/20 16:51 06/14/20 19:03 06/14/20 19:03 06/14/20 19:03 Intake & Output 06/13/20 06/14/20 06/15/20 06:59 06:59 06:59 Intake Total 1000 Balance 1000 Weight 97.9 kg General appearance: PRESENT: no acute distress, cooperative Eye exam: PRESENT: conjunctiva pink Respiratory exam: PRESENT: clear to auscultation [place] Cardiovascular exam: PRESENT: RRR GI/Abdominal exam: PRESENT: other - Protuberant abdomen that he states to be his normal body habitus. Abdomen is very soft. There is mild diffuse abdominal tenderness without peritoneal signs. He has a well-healed lower midline abdominal scar with no palpable hernias. There is no evidence of groin hernias. Extremities exam: PRESENT: other - No swelling and no tenderness Neurological exam: PRESENT: alert, awake Psychiatric exam: PRESENT: appropriate affect Skin exam: PRESENT: warm Results Laboratory Results: 06/14/20 17:17 06/14/20 17:17 06/14/20 06/14/20 06/14/20 17:17 17:17 17:55 WBC 5.7 RBC 4.45 Hgb 12.5 L Hct 37.7 L MCV 85 MCH 28.1 MCHC 33.1 RDW 14.4 H Plt Count 354 Seg Neutrophils % 67.7 Sodium 134.0 L Potassium 4.7 Chloride 100 Carbon Dioxide 20 L Anion Gap 14 BUN 27 H Creatinine 1.49 H Est GFR ( Amer) 56 L Glucose 420 H* Calcium 9.0 Total Bilirubin 0.6 AST 13 L Alkaline Phosphatase 110 Total Protein 6.4 Albumin 3.6 Lipase 74.3 Urine Color JOANA Urine Appearance CLOUDY Urine pH 5.0 Ur Specific [place] 1.026 Urine Protein 30 H Urine Glucose (UA) >=500 H Urine Ketones 20 H Urine Blood NEGATIVE Urine RBC (Auto) 2 Impressions: Abdomen/Pelvis CT 06/14/20 17:36 IMPRESSION: 1. Several distended proximal small bowel segments with air-fluid levels, indeterminate for localized ileus versus partial small bowel obstruction. 2. No perforation or abscess. Assessment & Plan - Diagnosis (1) Ileus Is this a current diagnosis for this admission?: Yes Plan: Versus partial small bowel obstruction. We will manage the patient conservatively with NG tube decompression and observation. Will obtain abdominal x-rays tomorrow. Surgical service will follow. I have had a long discussion with the patient concerning the risk and benefits of conservative management for possible small bowel obstruction versus surgery. He understands that in the observation, there is a risk of intestinal compromise. However with no tachycardia no leukocytosis and no active abdominal pain and no transition point seen on CT scan, unlikely that he has compromised bowel. Furthermore he has been passing gas and he has had a bowel movement since his isolated episode of emesis yesterday.
[2020-06-14] MEDS ORDERED: HYDRALAZINE HCL INJ/PF 20 MG/1 ML SDV IV PRN (22:33)
[2020-06-14] MEDS ORDERED: ONDANSETRON HCL INJ/PF 4 MG/2 ML SDV IV PRN (22:34)
[2020-06-14] MEDS ORDERED: DEXTROSE 40% GEL 15 GM TUBE PO PRN ×2 (22:34)
[2020-06-14] MEDS ORDERED: DEXTROSE 50%-WATER 25 GM/50 ML DISP.SYRIN IV PRN ×2 (22:34)
[2020-06-14] MEDS ORDERED: GLUCAGON,HUMAN RECOMB 1 MG INJ IM PRN (22:34)
--- NOTE | 2020-06-14 22:44 | RADIOLOGY REPORT (SQ) ---
EXAM DESCRIPTION: [facility]: XR CHEST 1 VIEW CLINICAL HISTORY: 74 years Male; Shortness of breath; COMPARISON: 09/11/2019 FINDINGS: Lungs: Lungs are clear, with no focal infiltrate, pneumothorax, or pleural effusion. Mediastinum: Mediastinum is within normal limits for this positioning. Bones: Right shoulder arthroplasty is again noted. Enteric tube is incompletely visualized, extending at least into the distal esophagus. IMPRESSION: 1. No acute pulmonary findings.
--- NOTE | 2020-06-14 22:55 | PDOC H&P ---
History of Present Illness Admission Date/PCP: GAVI FALLON DO History of Present Illness: LUCIO JOHNSON is a 74 year old male with a history of diabetes and hypertension who presents with abdominal pain. He said it started yesterday. He said it was sort of diffuse and achy. He had one episode of emesis yesterday. He said he did not feel like his belly was swelling up any yes terday.. He was actually sent over here from [facility] earlier today because his blood sugar was in the upper 300s. After he gave a history of some nausea yesterday they did a CT scan his belly which was not terribly impressive but the ER decided to consult surgery who recommended NG tube placement for what was called moderately dilated small bowel loops with no definite transition point. NG tube was placed and nothing has come out of the tube. Patient said he has been passing gas today and had a bowel movement this morning. His blood sugars were elevated. He said overall he feels pretty comfortable now. He told me he took his medications this morning and did not vomit them back up. Past Medical History Cardiac Medical History: Reports: Coronary Artery Disease, Hyperlipidema, Hypertension Denies: Myocardial Infarction Pulmonary Medical History: Reports: Asthma, Pneumonia - "WALKING", Sleep Apnea - has narcolepsy Neurological Medical History: Denies: Seizures Endocrine Medical History: Reports: Diabetes Mellitus Type 1, Diabetes Mellitus Type 2 Renal/ Medical History: Malignancy Medical History: GI Medical History: Reports: Gastroesophageal Reflux Disease, Hiatal Hernia Denies: Hepatitis Musculoskeltal Medical History: Reports: Arthritis Psychiatric Medical History: Reports: Depression, Post Traumatic Stress Disorder Hematology: Denies: Anemia, Hemophilia, Sickle Cell Disease Infectious Medical History: Past Surgical History Past Surgical History: Reports: Appendectomy, Herniorrhaphy, Orthopedic Surgery - carpal tunnel, knee shoulder, Tonsillectomy Denies: Cholecystectomy, Pacemaker Social History Smoking Status: Unknown if Ever Smoked Electronic Cigarette use?: No Frequency of Alcohol Use: None Hx Recreational Drug Use: No Hx Prescription Drug Abuse: No Family History Family History: Reviewed & Not Pertinent Parental Family History Reviewed: Yes Children Family History Reviewed: Yes Sibling(s) Family History Reviewed.: Yes Medication/Allergy Home Medications: Aspirin [Aspirin EC] 81 mg PO DAILY 03/28/13 Atorvastatin Calcium [Lipitor 10 mg Tablet] 20 mg PO DAILY 03/28/13 Furosemide [Lasix 20 mg Tablet] 20 mg PO DAILY 03/28/13 Gabapentin [Neurontin 400 mg Capsule] 400 mg PO TID 03/28/13 Loratadine [Loratadine Allergy] 10 mg PO DAILY 03/28/13 Amlodipine Besylate 10 mg PO DAILY 07/10/13 Clotrimazole 1% Topical [Lotrimin 1% Topical Solution] 1 applic TP ASDIR PRN 07/10/13 Ferrous Fumarate [Iron] 65 mg PO DAILY 07/10/13 Metformin HCl [Glucophage 500 Mg Tablet] 1,000 mg PO BID 07/10/13 Tamsulosin HCl 0.4 mg PO QHS 07/10/13 Fluticasone Propionate [Flonase Nasal [place] 50 Mcg/[place] 16 gm] 2 sprays NASL DAILY 12/10/14 Allopurinol [Zyloprim 100 mg Tablet] 100 mg PO DAILY 10/19/18 Cyanocobalamin (Vitamin B-12) [Vitamin B12] 1,000 mcg PO DAILY 10/19/18 Donepezil HCl [Aricept 5 mg Tablet] 5 mg PO DAILY 10/19/18 Finasteride [Proscar 5 mg Tablet] 5 mg PO DAILY 10/19/18 Fluoxetine HCl [Prozac 20 mg Capsule] 40 mg PO QAM 10/19/18 Gemfibrozil 300 mg PO QHS 10/19/18 Lisinopril [Prinivil 40 mg Tablet] 40 mg PO DAILY 10/19/18 Multivit with Iron,Minerals [Spectravite Senior] 1 tab PO DAILY 10/19/18 Testosterone [Androgel] 1 applic TOP DAILY 10/19/18 Diclofenac Sodium [Voltaren] 75 mg PO BID 10/30/18 Metoprolol Succinate [Toprol Xl 25 mg Tab.sr] 25 mg PO DAILY 10/30/18 Montelukast Sodium [Singulair 10 mg Tablet] 10 mg PO QHS 10/30/18 Omeprazole 20 mg PO DAILY 10/30/18 Nitroglycerin 0.4 mg SL Q10MP PRN #25 tab.subl 12/22/18 Allergies/Adverse Reactions: anesthesia medicine unknown Allergy (Severe, Uncoded 06/14/20 16:43) stopped breathing Review of Systems All systems: reviewed and no additional remarkable complaints except as stated - All systems were reviewed and were negative except as noted in the HPI Physical Exam Vital Signs: Temp Pulse Resp BP Pulse Ox 97.8 F 72 19 129/77 H 99 06/14/20 19:24 06/14/20 16:51 06/14/20 21:03 06/14/20 21:03 06/14/20 21:03 Intake & Output 06/13/20 06/14/20 06/15/20 06:59 06:59 06:59 Intake Total 1000 Balance 1000 Weight 97.9 kg General appearance: PRESENT: no acute distress, cooperative, disheveled, obese Head exam: PRESENT: atraumatic, normocephalic Eye exam: PRESENT: EOMI, PERRLA. ABSENT: conjunctival injection, nystagmus, scleral icterus Ear exam: PRESENT: normal external ear exam Mouth exam: PRESENT: moist, neck supple Throat exam: ABSENT: post pharyngeal erythema Neck exam: PRESENT: full ROM. ABSENT: carotid bruit, JVD, lymphadenopathy, meningismus, tenderness, thyromegaly Respiratory exam: PRESENT: clear to auscultation [place], symmetrical, unlabored. ABSENT: accessory muscle use, chest wall tenderness, crackles, prolonged expiratory phas, rhonchi, tachypnea, wheezes Cardiovascular exam: PRESENT: RRR, +S1, +S2 Pulses: PRESENT: normal carotid pulses Vascular exam: PRESENT: normal capillary refill GI/Abdominal exam: PRESENT: normal bowel sounds - He does have an NG tube in place however, soft. ABSENT: distended - He has a pendulous abdomen and so it is difficult to say if he is distended, guarding, rebound, tenderness Extremities exam: ABSENT: clubbing, pedal edema Musculoskeletal exam: PRESENT: normal inspection. ABSENT: deformity Neurological exam: PRESENT: alert, awake, oriented to person, oriented to place, oriented to situation, CN II-XII grossly intact. ABSENT: motor sensory deficit Psychiatric exam: PRESENT: appropriate affect, normal mood Skin exam: PRESENT: dry, warm Results Laboratory Results: 06/14/20 17:17 06/14/20 17:17 06/14/20 06/14/20 06/14/20 17:17 17:17 17:55 WBC 5.7 RBC 4.45 Hgb 12.5 L Hct 37.7 L MCV 85 MCH 28.1 MCHC 33.1 RDW 14.4 H Plt Count 354 Seg Neutrophils % 67.7 Sodium 134.0 L Potassium 4.7 Chloride 100 Carbon Dioxide 20 L Anion Gap 14 BUN 27 H Creatinine 1.49 H Est GFR ( Amer) 56 L Glucose 420 H* Lactic Acid Calcium 9.0 Total Bilirubin 0.6 AST 13 L Alkaline Phosphatase 110 Total Protein 6.4 Albumin 3.6 Lipase 74.3 Urine Color JOANA Urine Appearance CLOUDY Urine pH 5.0 Ur Specific [place] 1.026 Urine Protein 30 H Urine Glucose (UA) >=500 H Urine Ketones 20 H Urine Blood NEGATIVE Urine RBC (Auto) 2 06/14/20 21:00 WBC RBC Hgb Hct MCV MCH MCHC RDW Plt Count Seg Neutrophils % Sodium Potassium Chloride Carbon Dioxide Anion Gap BUN Creatinine Est GFR ( Amer) Glucose Lactic Acid 0.9 Calcium Total Bilirubin AST Alkaline Phosphatase Total Protein Albumin Lipase Urine Color Urine Appearance Urine pH Ur Specific [place] Urine Protein Urine Glucose (UA) Urine Ketones Urine Blood Urine RBC (Auto) Impressions: Abdomen/Pelvis CT 06/14/20 17:36 IMPRESSION: 1. Several distended proximal small bowel segments with air-fluid levels, indeterminate for localized ileus versus partial small bowel obstruction. 2. No perforation or abscess. Assessment and Plan - Diagnosis (1) Ileus Is this a current diagnosis for this admission?: Yes Plan: I am not sure how bad his ileus actually was because he said he had a bowel movement this morning and he has been passing gas. When he was sent over here, he was not sent over here for an ileus, he was sent over here because his blood sugar was elevated. However, he has been seen by surgery and has an NG tube in place. It should be noted that there is nothing that is come out of the NG tube thus far and it is on suction. He actually looks to be a bit constipated on his CT scan. Will follow surgery's recommendation regarding management of this issue. (2) Hyperglycemia due to type 2 diabetes mellitus Qualifiers: Diabetes mellitus assisted insulin use: without core blower operator use Qualified Code(s): E11.65 - Type 2 diabetes mellitus with hyperglycemia Is this a current diagnosis for this admission?: Yes Plan: He is n.p.o. for now, so we will keep him on some fluids and put him on a sliding scale and monitor the trend in his blood sugars. We will restart his home medications when appropriate. - Time Time Spent with patient: 35 or more minutes Anticipated Discharge Disposition: Home with Home Health Anticipated Discharge Timeframe: within 72 hours - Inpatient Certification Based on my medical assessment, after consideration of the patient's comorbidities, presenting symptoms, or acuity I expect that the services needed warrant INPATIENT care.: Yes Medical Necessity: Significant Comorbidiites Make Outpatient Treatment Too Risky, Need Close Monitoring Due to Risk of Patient Decompensation, Need For IV Fluids, Need For Continuous Telemetry Monitoring, Risk of Complication if Not Cared For in Hospital
[2020-06-15] MEDS: INSULIN LISPRO 100 UNIT/ML 3 ML VIAL SUBCUT SCH ×5 (04:11→22:42)
[2020-06-15 05:15] LABS: HEMATOCRIT 35.4 % (37.9-51.0); HEMOGLOBIN 11.7 g/dL (13.5-17.0); MEAN CORPUSCULAR HEMOGLOBIN 27.8 pg (27.0-33.4); MEAN CORPUSCULAR HGB CONC 33.1 g/dL (32.0-36.0); MEAN CORPUSCULAR VOLUME 84 fl (80-97); PLATELET COUNT 349 10^3/uL (150-450); RED BLOOD COUNT 4.22 10^6/uL (4.35-5.55); RED CELL DISTRIBUTION WIDTH 14.2 % (11.5-14.0); WHITE BLOOD COUNT 5.3 10^3/uL (4.0-10.5)
[2020-06-15] MEDS: HEPARIN SOD (PORCINE) 5,000 UNIT/ML 1 ML VIAL SUBCUT SCH ×3 (05:33→22:41)
[2020-06-15 05:38] LABS: ANION GAP 11 (5-19); BLOOD UREA NITROGEN 22 mg/dL (7-20); CALCIUM 8.6 mg/dL (8.4-10.2); CARBON DIOXIDE 20 mmol/L (22-30); CHLORIDE 107 mmol/L (98-107); GLUCOSE 246 mg/dL (75-110); POTASSIUM 4.4 mmol/L (3.6-5.0)
[2020-06-15] MEDS ORDERED: KETOROLAC TROMETHAMINE INJ/PF 30 MG/1 ML SDV IV ONE (07:15)
--- NOTE | 2020-06-15 09:14 | RADIOLOGY REPORT (SQ) ---
EXAM DESCRIPTION: ABDOMEN 2 VIEWS IMAGES COMPLETED DATE/TIME: 06/15/2020 9:02 am REASON FOR STUDY: r/o sbo COMPARISON: CT dated 06/14/2020. NUMBER OF VIEWS: Two views. TECHNIQUE: Supine and erect/decubitus radiographic images of the abdomen acquired. LIMITATIONS: None. FINDINGS: FREE AIR: None. No abnormal gas collections. LUNG BASES: Clear. BOWEL GAS PATTERN: Mild small bowel dilation in the left mid abdomen. CALCIFICATIONS: No suspicious calcifications. SOFT TISSUES: No gross mass or suggestion of organomegaly. HARDWARE: None in the abdomen. BONES: No acute fracture. No worrisome bone lesions. OTHER: No other significant finding. IMPRESSION: MILD SMALL BOWEL DILATION. TECHNICAL DOCUMENTATION: JOB ID: [id number] 2010 [employer]- All Rights Reserved Reading location - IP/workstation name: [email or web address]
[2020-06-15] MEDS: PANTOPRAZOLE SODIUM 40 MG VIAL IV SCH (09:30)
--- NOTE | 2020-06-15 10:59 | PDOC PROGRESS REPORT ---
Subjective Progress Note for:: 06/15/20 Subjective:: Had some crampy abdominal pain earlier today which has been resolved with pain medication. Passing gas. Hungry. Reason For Visit: ILEUS,HYPERGLYCEMIA Physical Exam Vital Signs: Temp Pulse Resp BP Pulse Ox 97.6 F 75 18 131/67 H 98 06/14/20 23:43 06/15/20 07:00 06/14/20 23:43 06/14/20 23:43 06/14/20 23:43 Intake & Output 06/14/20 06/15/20 06/16/20 06:59 06:59 06:59 Intake Total 2000 Output Total 720 Balance 1280 Weight 99.2 kg General appearance: PRESENT: no acute distress, cooperative Respiratory exam: PRESENT: clear to auscultation marina Cardiovascular exam: PRESENT: RRR GI/Abdominal exam: PRESENT: other - Soft, protuberant abdomen but nondistended, diffuse mild abdominal tenderness without peritoneal signs. Bowel sounds heard. Not particularly high-pitched. Results Laboratory Results: 06/15/20 04:35 06/15/20 04:35 06/14/20 06/14/20 06/14/20 17:17 17:17 17:55 WBC 5.7 RBC 4.45 Hgb 12.5 L Hct 37.7 L MCV 85 MCH 28.1 MCHC 33.1 RDW 14.4 H Plt Count 354 Seg Neutrophils % 67.7 Sodium 134.0 L Potassium 4.7 Chloride 100 Carbon Dioxide 20 L Anion Gap 14 BUN 27 H Creatinine 1.49 H Est GFR ( Amer) 56 L Glucose 420 H* Lactic Acid Calcium 9.0 Total Bilirubin 0.6 AST 13 L Alkaline Phosphatase 110 Total Protein 6.4 Albumin 3.6 Lipase 74.3 Urine Color JOANA Urine Appearance CLOUDY Urine pH 5.0 Ur Specific [place] 1.026 Urine Protein 30 H Urine Glucose (UA) >=500 H Urine Ketones 20 H Urine Blood NEGATIVE Urine RBC (Auto) 2 06/14/20 06/15/20 06/15/20 21:00 04:35 04:35 WBC 5.3 RBC 4.22 L Hgb 11.7 L Hct 35.4 L MCV 84 MCH 27.8 MCHC 33.1 RDW 14.2 H Plt Count 349 Seg Neutrophils % Sodium 137.8 Potassium 4.4 Chloride 107 Carbon Dioxide 20 L Anion Gap 11 BUN 22 H Creatinine 0.91 Est GFR ( Amer) > 60 Glucose 246 H Lactic Acid 0.9 Calcium 8.6 Total Bilirubin AST Alkaline Phosphatase Total Protein Albumin Lipase Urine Color Urine Appearance Urine pH Ur Specific [place] Urine Protein Urine Glucose (UA) Urine Ketones Urine Blood Urine RBC (Auto) Impressions: Abdomen/Pelvis CT 06/14/20 17:36 IMPRESSION: 1. Several distended proximal small bowel segments with air-fluid levels, indeterminate for localized ileus versus partial small bowel obstruction. 2. No perforation or abscess. Chest X-Ray 06/14/20 21:21 IMPRESSION: 1. No acute pulmonary findings. Abdomen X-Ray 06/15/20 00:00 IMPRESSION: MILD SMALL BOWEL DILATION. Assessment & Plan - Diagnosis (1) Partial small bowel obstruction Is this a current diagnosis for this admission?: Yes Plan: Versus ileus. KUB still not normal with some distended small bowel loops. Symptomatically patient has had improvement and there is low NG output. However with the patient still having some crampy abdominal pain and some tenderness, will obtain small bowel follow series the of the NG tube to completely rule out partial small bowel obstruction. - Time Critical Time spent with patient: Less than 15 minutes Anticipated Discharge Disposition: Home, Self Care Anticipated Discharge Timeframe: within 72 hours
--- NOTE | 2020-06-15 12:29 | EKG REPORT ---
SEVERITY:- OTHERWISE NORMAL ECG - SINUS RHYTHM VENTRICULAR PREMATURE COMPLEX : Confirmed by: Jazzmine Gomez MD 15-Jun-2020 12:27:24
--- NOTE | 2020-06-15 13:08 | PDOC PROGRESS REPORT ---
Subjective Progress Note for:: 06/15/20 Subjective:: Patient is a 74-year-old male with a past medical history of diabetes and hypertension who was admitted 06/14/2020 with Ileus. Patient was seen on morning rounds. Found resting bed, comfortably, on room air. He has NG tube in place to low wall suction; only approximately 100 mL of clear fluid noted in canister. Patient reports that he is hungry and requested to remove NG tube to eat. Otherwise, he denies all symptoms; specifically denies fever, chest pain, palpi tations, dyspnea, cough, abdominal pain, nausea. No questions or concerns per nursing. Reason For Visit: ILEUS,HYPERGLYCEMIA Physical Exam Vital Signs: Temp Pulse Resp BP Pulse Ox 97.6 F 75 18 131/67 H 98 06/14/20 23:43 06/15/20 07:00 06/14/20 23:43 06/14/20 23:43 06/14/20 23:43 Intake & Output 06/14/20 06/15/20 06/16/20 06:59 06:59 06:59 Intake Total 2000 Output Total 720 Balance 1280 Weight 99.2 kg General appearance: PRESENT: no acute distress, cooperative, obese, well- developed, well-nourished Head exam: PRESENT: atraumatic, normocephalic Eye exam: PRESENT: conjunctiva pink, EOMI, PERRLA. ABSENT: scleral icterus Mouth exam: PRESENT: moist, tongue midline Respiratory exam: PRESENT: clear to auscultation marina, symmetrical, unlabored. ABSENT: rales, rhonchi, wheezes Cardiovascular exam: PRESENT: RRR, +S1, +S2. ABSENT: diastolic murmur, rubs, systolic murmur Pulses: PRESENT: normal dorsalis pedis pul Vascular exam: PRESENT: normal capillary refill GI/Abdominal exam: PRESENT: normal bowel sounds, soft, other - NG tube. ABSENT: distended, guarding, mass, organolmegaly, rebound, tenderness Rectal exam: PRESENT: deferred Extremities exam: PRESENT: full ROM. ABSENT: calf tenderness, clubbing, pedal edema Neurological exam: PRESENT: alert, awake, oriented to person, oriented to place, oriented to time, oriented to situation, CN II-XII grossly intact. ABSENT: motor sensory deficit Psychiatric exam: PRESENT: appropriate affect, normal mood. ABSENT: homicidal ideation, suicidal ideation Skin exam: PRESENT: dry, intact, warm. ABSENT: cyanosis, rash Results Laboratory Results: 06/15/20 04:35 06/15/20 04:35 06/14/20 06/14/20 06/14/20 17:17 17:17 17:55 WBC 5.7 RBC 4.45 Hgb 12.5 L Hct 37.7 L MCV 85 MCH 28.1 MCHC 33.1 RDW 14.4 H Plt Count 354 Seg Neutrophils % 67.7 Sodium 134.0 L Potassium 4.7 Chloride 100 Carbon Dioxide 20 L Anion Gap 14 BUN 27 H Creatinine 1.49 H Est GFR ( Amer) 56 L Glucose 420 H* Lactic Acid Calcium 9.0 Total Bilirubin 0.6 AST 13 L Alkaline Phosphatase 110 Total Protein 6.4 Albumin 3.6 Lipase 74.3 Urine Color JOANA Urine Appearance CLOUDY Urine pH 5.0 Ur Specific [place] 1.026 Urine Protein 30 H Urine Glucose (UA) >=500 H Urine Ketones 20 H Urine Blood NEGATIVE Urine RBC (Auto) 2 06/14/20 06/15/20 06/15/20 21:00 04:35 04:35 WBC 5.3 RBC 4.22 L Hgb 11.7 L Hct 35.4 L MCV 84 MCH 27.8 MCHC 33.1 RDW 14.2 H Plt Count 349 Seg Neutrophils % Sodium 137.8 Potassium 4.4 Chloride 107 Carbon Dioxide 20 L Anion Gap 11 BUN 22 H Creatinine 0.91 Est GFR ( Amer) > 60 Glucose 246 H Lactic Acid 0.9 Calcium 8.6 Total Bilirubin AST Alkaline Phosphatase Total Protein Albumin Lipase Urine Color Urine Appearance Urine pH Ur Specific [place] Urine Protein Urine Glucose (UA) Urine Ketones Urine Blood Urine RBC (Auto) Impressions: Abdomen/Pelvis CT 06/14/20 17:36 IMPRESSION: 1. Several distended proximal small bowel segments with air-fluid levels, indeterminate for localized ileus versus partial small bowel obstruction. 2. No perforation or abscess. Chest X-Ray 06/14/20 21:21 IMPRESSION: 1. No acute pulmonary findings. Abdomen X-Ray 06/15/20 00:00 IMPRESSION: MILD SMALL BOWEL DILATION. Assessment and Plan - Diagnosis (1) Ileus Is this a current diagnosis for this admission?: Yes Plan: Admitted to the medical floor. Surgery consulted; primary management per their expertise. NG tube to low wall suction. Continue n.p.o. status. IV fluids to maintain hydration. Planning for a small bowel follow-through series. Antiemetics as needed. (2) Hyperglycemia due to type 2 diabetes mellitus Qualifiers: Diabetes mellitus residential insulin use: without roasterman use Qualified Code(s): E11.65 - Type 2 diabetes mellitus with hyperglycemia Is this a current diagnosis for this admission?: Yes Plan: Check A1c with a.m. lab work. Currently n.p.o. Accu-Cheks every 6 hours with sliding scale insulin. Hypoglycemia protocol in place. (3) Hypertension Is this a current diagnosis for this admission?: Yes Plan: Blood pressures currently adequate. Home medication regiment on hold secondary to ileus/partial small bowel obstruction. IV hydralazine as needed for blood pressure control. - Time Time Spent with patient: 15-24 minutes Medications reviewed and adjusted accordingly: Yes Anticipated Discharge Disposition: Home, Self Care Anticipated Discharge Timeframe: other
--- NOTE | 2020-06-15 14:07 | RADIOLOGY REPORT (SQ) ---
EXAM DESCRIPTION: SMALL BOWEL SERIES IMAGES COMPLETED DATE/TIME: 06/15/2020 1:56 pm REASON FOR STUDY: r/o sbo COMPARISON: None. LIMITATIONS: None. PROCEDURE: Initial control room supervisor image of abdomen acquired, followed by administration of oral contrast (240 mL Gastrografin via NG tube). Serial radiographic images acquired. Fluoroscopic images recorded of the terminal ileum and other indicated areas. All images stored on PACS. FINDINGS: CERTIFIED DIETARY MANAGER KUB: Non-obstructive bowel pattern. No abnormal calcifications. Soft tissue planes normal. STOMACH:Normal distention without abnormality. BOWEL: No dilated loops. Normal mucosal pattern throughout. Transit to rectum by 45 minutes. OTHER: No other significant finding. IMPRESSION: No evidence of small-bowel obstruction. COMMENT: Quality ID [id number]: Final reports for procedures using fluoroscopy that document radiation exp osure indices, or exposure time and number of fluorographic images (if radiation exposure indices are not available) TECHNICAL DOCUMENTATION: JOB ID: [id number] 2010 [email or web address]- All Rights Reserved Reading location - IP/workstation name: [email or web address]
[2020-06-15] MEDS: RINGERS SOLUTION,LACTATED 1,000 ML IV PRN (14:56)
--- NOTE | 2020-06-15 15:45 | PDOC PROGRESS REPORT ---
Subjective Progress Note for:: 06/15/20 Subjective:: Feels well. Had multiple bowel movements after the small bowel follow series. Very hungry. Reason For Visit: ILEUS,HYPERGLYCEMIA Physical Exam Vital Signs: Temp Pulse Resp BP Pulse Ox 98.5 F 82 18 157/70 H 95 06/15/20 12:04 06/15/20 14:00 06/15/20 12:04 06/15/20 12:04 06/15/20 12:04 Intake & Output 06/14/20 06/15/20 06/16/20 06:59 06:59 06:59 Intake Total 2000 Output Total 720 500 Balance 1280 -500 Weight 99.2 kg Results Laboratory Results: 06/15/20 04:35 06/15/20 04:35 06/14/20 06/14/20 06/14/20 17:17 17:17 17:55 WBC 5.7 RBC 4.45 Hgb 12.5 L Hct 37.7 L MCV 85 MCH 28.1 MCHC 33.1 RDW 14.4 H Plt Count 354 Seg Neutrophils % 67.7 Sodium 134.0 L Potassium 4.7 Chloride 100 Carbon Dioxide 20 L Anion Gap 14 BUN 27 H Creatinine 1.49 H Est GFR ( Amer) 56 L Glucose 420 H* Lactic Acid Calcium 9.0 Total Bilirubin 0.6 AST 13 L Alkaline Phosphatase 110 Total Protein 6.4 Albumin 3.6 Lipase 74.3 Urine Color JOANA Urine Appearance CLOUDY Urine pH 5.0 Ur Specific [place] 1.026 Urine Protein 30 H Urine Glucose (UA) >=500 H Urine Ketones 20 H Urine Blood NEGATIVE Urine RBC (Auto) 2 06/14/20 06/15/20 06/15/20 21:00 04:35 04:35 WBC 5.3 RBC 4.22 L Hgb 11.7 L Hct 35.4 L MCV 84 MCH 27.8 MCHC 33.1 RDW 14.2 H Plt Count 349 Seg Neutrophils % Sodium 137.8 Potassium 4.4 Chloride 107 Carbon Dioxide 20 L Anion Gap 11 BUN 22 H Creatinine 0.91 Est GFR ( Amer) > 60 Glucose 246 H Lactic Acid 0.9 Calcium 8.6 Total Bilirubin AST Alkaline Phosphatase Total Protein Albumin Lipase Urine Color Urine Appearance Urine pH Ur Specific [place] Urine Protein Urine Glucose (UA) Urine Ketones Urine Blood Urine RBC (Auto) Impressions: Abdomen/Pelvis CT 06/14/20 17:36 IMPRESSION: 1. Several distended proximal small bowel segments with air-fluid levels, indeterminate for localized ileus versus partial small bowel obstruction. 2. No perforation or abscess. Chest X-Ray 06/14/20 21:21 IMPRESSION: 1. No acute pulmonary findings. Abdomen X-Ray 06/15/20 00:00 IMPRESSION: MILD SMALL BOWEL DILATION. Small Bowel X-Ray 06/15/20 00:00 IMPRESSION: No evidence of small-bowel obstruction. Assessment & Plan - Diagnosis (1) Partial small bowel obstruction Is this a current diagnosis for this admission?: Yes Plan: Bowel obstruction ruled out or has resolved as demonstrated by normal small bowel follow series. NG tube DC'd. Started on a diabetic diet. Surgical service signing off. Please call us for any problems or concerns. Suspect his nausea and vomiting was due to his diabetes and hyperglycemia. - Time Critical Time spent with patient: Less than 15 minutes Anticipated Discharge Disposition: Home, Self Care Anticipated Discharge Timeframe: within 48 hours
[2020-06-15] MEDS ORDERED: INSULIN LISPRO 100 UNIT/ML 3 ML VIAL SUBCUT SCH (22:00)
[2020-06-16] MEDS: RINGERS SOLUTION,LACTATED 1,000 ML IV PRN ×2 (00:56→11:37)
[2020-06-16 05:29] LABS: HEMOGLOBIN 11.6 g/dL (13.5-17.0); MEAN CORPUSCULAR HEMOGLOBIN 27.8 pg (27.0-33.4); MEAN CORPUSCULAR HGB CONC 33.2 g/dL (32.0-36.0); MEAN CORPUSCULAR VOLUME 84 fl (80-97); PLATELET COUNT 383 10^3/uL (150-450); RED BLOOD COUNT 4.17 10^6/uL (4.35-5.55); RED CELL DISTRIBUTION WIDTH 14.2 % (11.5-14.0); WHITE BLOOD COUNT 7.1 10^3/uL (4.0-10.5)
[2020-06-16 05:51] LABS: ANION GAP 8 (5-19); BLOOD UREA NITROGEN 17 mg/dL (7-20); CALCIUM 8.7 mg/dL (8.4-10.2); CARBON DIOXIDE 22 mmol/L (22-30); CHLORIDE 107 mmol/L (98-107); GLUCOSE 217 mg/dL (75-110); POTASSIUM 4.4 mmol/L (3.6-5.0)
[2020-06-16] MEDS: HEPARIN SOD (PORCINE) 5,000 UNIT/ML 1 ML VIAL SUBCUT SCH (06:11)
[2020-06-16] MEDS: INSULIN LISPRO 100 UNIT/ML 3 ML VIAL SUBCUT SCH ×2 (09:14→11:53)
[2020-06-16] MEDS: PANTOPRAZOLE SODIUM 40 MG VIAL IV SCH (09:16)
[2020-06-16] MEDS ORDERED: INSULIN GLARGINE,HUM.REC.ANLOG 1,000 UNIT/10 ML VIAL SUBCUT SCH (10:00)
[2020-06-16 14:03] VITALS: BP 131/67
--- NOTE | 2020-06-18 14:04 | PDOC DISCHARGE SUMMARY ---
Impression - Admit/DC Date/PCP Admission Date/Primary Care Provider: 06/14/20 22:42 GAVI FALLON, DO Discharge Date: 06/16/20 - Discharge Diagnosis (1) Ileus Is this a current diagnosis for this admission?: Yes (2) Hyperglycemia due to type 2 diabetes mellitus Is this a current diagnosis for this admission?: Yes (3) Hypertension Is this a current diagnosis for this admission?: Yes - Additional Information Discharge Diet: Diabetic Discharge Activity: Activity As Tolerated, Balance Activity w/Rest [facility]errals: [facility] [NO [facility]AL MD] - Prescriptions: Insulin Glargine,Hum.rec.anlog [Lantus Insulin 100 Unit/mL Insulin Pen] 10 unit SUBCUT QHS #10 ml Home Medications: Aspirin [Aspirin EC] 81 mg PO DAILY 03/28/13 Furosemide [Lasix 20 mg Tablet] 20 mg PO DAILY 03/28/13 Gabapentin [Neurontin 400 mg Capsule] 400 mg PO Q8 03/28/13 Loratadine [Loratadine Allergy] 10 mg PO DAILY 03/28/13 Amlodipine Besylate 10 mg PO DAILY 07/10/13 Metformin HCl [Glucophage 500 mg Tablet] 1,000 mg PO BIDBS 07/10/13 Allopurinol [Zyloprim 100 mg Tablet] 100 mg PO DAILY 10/19/18 Finasteride [Proscar 5 mg Tablet] 5 mg PO DAILY 10/19/18 Fluoxetine HCl [Prozac 20 mg Capsule] 80 mg PO QAM 10/19/18 Gemfibrozil 300 mg PO QHS 10/19/18 Lisinopril [Prinivil 40 mg Tablet] 40 mg PO DAILY 10/19/18 Diclofenac Sodium [Voltaren] 75 mg PO BID 10/30/18 Metoprolol Succinate [Toprol Xl 25 mg Tab.sr] 25 mg PO DAILY 10/30/18 Omeprazole 20 mg PO DAILY 10/30/18 Ammonium Lactate 1 applic TOP BIDP PRN 06/16/20 Clotrimazole 1 applic TOP BID 06/16/20 Glipizide [Glucotrol 5 mg Tablet] 5 mg PO BID 06/16/20 Insulin Glargine,Hum.rec.anlog [Lantus Insulin 100 Unit/mL Insulin Pen] 10 unit SUBCUT QHS #10 ml 06/16/20 Multivitamin [Multiple Vitamins] 1 tab PO DAILY 06/16/20 Nitroglycerin 0.4 mg SL Q5MP PRN 06/16/20 Terbinafine HCl [Antifungal] 1 applic TOP BID 06/16/20 Trazodone HCl 100 mg PO QHS 06/16/20 History of Present Illiness History of Present Illness: Per H&P by Dr. Doshi: LUCIO JOHNSON is a 74 year old male with a history of diabetes and hypertension who presents with abdominal pain. He said it started yesterday. He said it was sort of diffuse and achy. He had one episode of emesis yesterday. He said he did not feel like his belly was swelling up any yesterday.. He was actually sent over here from [facility] earlier today because his blood sugar was in the upper 300s. After he gave a history of some nausea yesterday they did a CT scan his belly which was not terribly impressive but the ER decided to consult surgery who recommended NG tube placement for what was called moderately dilated small bowel loops with no definite transition point. NG tube was placed and nothing has come out of the tube. Patient said he has been passing gas today and had a bowel movement this morning. His blood sugars were elevated. He said overall he feels pretty comfortable now. He told me he took his medications this morning and did not vomit them back up. Hospital Course Hospital Course: (1) Ileus Resolved. Patient initially had NG tube to low wall suction and n.p.o. status. His abdominal distention, discomfort, nausea and vomiting rapidly improved. The following day, a small bowel follow-through with oral contrast was negative for small bowel obstruction. His diet was slowly advanced and tolerated well. Therefore NG tube was removed. Discussed with surgery, he is now cleared for discharge to home. (2) Hyperglycemia due to type 2 diabetes mellitus A1c 11.3%. Discussed option of starting a long-acting insulin with patient. He does not have previous experience with insulin therapy, but is agreeable and willing to learn self administration. He is started on Lantus 10 units daily in addition to resuming his home medication regiment. Arrangements were made for the patient to meet with the life educator. Close outpatient follow-up. (3) Hypertension Adequate blood pressure control on home medication regiment. Physical Exam Vital Signs: Temp Pulse Resp BP Pulse Ox 98.1 F 68 20 131/67 H 98 08/03/20 14:02 06/16/20 14:02 06/16/20 14:02 06/16/20 14:02 06/16/20 14:02 Intake & Output 06/17/20 06/18/20 06/19/20 06:59 06:59 06:59 Intake Total 1480 Balance 1480 General appearance: PRESENT: no acute distress, cooperative, well-developed, well-nourished Head exam: PRESENT: atraumatic, normocephalic Eye exam: PRESENT: conjunctiva pink, EOMI, PERRLA. ABSENT: scleral icterus Mouth exam: PRESENT: moist, tongue midline Respiratory exam: PRESENT: clear to auscultation marina, symmetrical, unlabored. ABSENT: rales, rhonchi, wheezes Cardiovascular exam: PRESENT: RRR. ABSENT: diastolic murmur, rubs, systolic murmur Pulses: PRESENT: normal dorsalis pedis pul Vascular exam: PRESENT: normal capillary refill GI/Abdominal exam: PRESENT: normal bowel sounds, soft. ABSENT: distended, guarding, mass, organolmegaly, rebound, tenderness Rectal exam: PRESENT: deferred Extremities exam: PRESENT: full ROM. ABSENT: calf tenderness, clubbing, pedal edema Neurological exam: PRESENT: alert, awake, oriented to person, oriented to place, oriented to time, oriented to situation, CN II-XII grossly intact. ABSENT: motor sensory deficit Psychiatric exam: PRESENT: appropriate affect, normal mood. ABSENT: homicidal ideation, suicidal ideation Skin exam: PRESENT: dry, intact, warm. ABSENT: cyanosis, rash Results Laboratory Results: WBC 7.1 10^3/uL (4.0-10.5) 06/16/20 04:09 RBC 4.17 10^6/uL (4.35-5.55) L 06/16/20 04:09 Hgb 11.6 g/dL (13.5-17.0) L 06/16/20 04:09 Hct 35.0 % (37.9-51.0) L 06/16/20 04:09 MCV 84 fl (80-97) 06/16/20 04:09 MCH 27.8 pg (27.0-33.4) 06/16/20 04:09 MCHC 33.2 g/dL (32.0-36.0) 06/16/20 04:09 RDW 14.2 % (11.5-14.0) H 06/16/20 04:09 Plt Count 383 10^3/uL (150-450) 06/16/20 04:09 Lymph % (Auto) 13.4 % (13-45) 06/14/20 17:17 [place] % (Auto) 15.5 % (3-13) H 06/14/20 17:17 Eos % (Auto) 2.9 % (0-6) 06/14/20 17:17 Baso % (Auto) 0.5 % (0-2) 06/14/20 17:17 Absolute Neuts (auto) 3.9 10^3/uL (1.7-8.2) 06/14/20 17:17 Absolute Lymphs (auto) 0.8 10^3/uL (0.5-4.7) 06/14/20 17:17 Absolute Monos (auto) 0.9 10^3/uL (0.1-1.4) 06/14/20 17:17 Absolute Eos (auto) 0.2 10^3/uL (0.0-0.6) 06/14/20 17:17 Absolute Basos (auto) 0.0 10^3/uL (0.0-0.2) 06/14/20 17:17 Seg Neutrophils % 67.7 % (42-78) 06/14/20 17:17 Sodium 137.2 mmol/L (137-145) 06/16/20 04:09 Potassium 4.4 mmol/L (3.6-5.0) 06/16/20 04:09 Chloride 107 mmol/L (98-107) 06/16/20 04:09 Carbon Dioxide 22 mmol/L (22-30) 06/16/20 04:09 Anion Gap 8 (5-19) 06/16/20 04:09 BUN 17 mg/dL (7-20) 06/16/20 04:09 Creatinine 0.83 mg/dL (0.52-1.25) 06/16/20 04:09 Est GFR ( Amer) > 60 (>60) 06/16/20 04:09 Est GFR (MDRD) Non-Af > 60 (>60) 06/16/20 04:09 Glucose 217 mg/dL (75-110) H 06/16/20 04:09 POC Glucose 288 mg/dL (70-110) H 06/16/20 11:40 Hemoglobin A1c % 11.3 % (4.7-6.0) H 06/16/20 04:09 Lactic Acid 0.9 mmol/L (0.7-2.1) 06/14/20 21:00 Calcium 8.7 mg/dL (8.4-10.2) 06/16/20 04:09 Total Bilirubin 0.6 mg/dL (0.2-1.3) 06/14/20 17:17 Direct Bilirubin 0.2 mg/dL (0.0-0.4) 06/14/20 17:17 Neonat Total Bilirubin Not Reportable 06/14/20 17:17 Neonat Direct Bilirubin Not Reportable 06/14/20 17:17 Neonat Indirect Bili Not Reportable 06/14/20 17:17 AST 13 U/L (17-59) L 06/14/20 17:17 ALT 11 U/L (<50) 06/14/20 17:17 Alkaline Phosphatase 110 U/L (38-126) 06/14/20 17:17 Total Protein 6.4 g/dL (6.3-8.2) 06/14/20 17:17 Albumin 3.6 g/dL (3.5-5.0) 06/14/20 17:17 Lipase 74.3 U/L (23-300) 06/14/20 17:17 Urine Color JOANA 06/14/20 17:55 Urine Appearance CLOUDY 06/14/20 17:55 Urine pH 5.0 (5.0-9.0) 06/14/20 17:55 Ur Specific [place] 1.026 06/14/20 17:55 Urine Protein 30 mg/dL (NEGATIVE) H 06/14/20 17:55 Urine Glucose (UA) >=500 mg/dL (NEGATIVE) H 06/14/20 17:55 Urine Ketones 20 mg/dL (NEGATIVE) H 06/14/20 17:55 Urine Blood NEGATIVE (NEGATIVE) 06/14/20 17:55 Urine Nitrite (Reflex) NEGATIVE (NEGATIVE) 06/14/20 17:55 Urine Bilirubin NEGATIVE (NEGATIVE) 06/14/20 17:55 Urine Urobilinogen NEGATIVE mg/dL (<2.0) 06/14/20 17:55 Leukocyte Esterase Rfl NEGATIVE (NEGATIVE) 06/14/20 17:55 Urine RBC (Auto) 2 /HPF 06/14/20 17:55 U Hyaline Cast (Auto) 36 /LPF 06/14/20 17:55 Urine Bacteria (Auto) TRACE /HPF 06/14/20 17:55 Urine WBC (Reflex) 10 /HPF 06/14/20 17:55 Squamous Epi Cells Auto 1 /HPF 06/14/20 17:55 Urine Mucus (Auto) OCC /LPF 06/14/20 17:55 Urine Ascorbic Acid NEGATIVE (NEGATIVE) 06/14/20 17:55 Impressions: Abdomen/Pelvis CT 06/14/20 17:36 IMPRESSION: 1. Several distended proximal small bowel segments with air-fluid levels, indeterminate for localized ileus versus partial small bowel obstruction. 2. No perforation or abscess. Chest X-Ray 06/14/20 21:21 IMPRESSION: 1. No acute pulmonary findings. Abdomen X-Ray 06/15/20 00:00 IMPRESSION: MILD SMALL BOWEL DILATION. Small Bowel X-Ray 06/15/20 00:00 IMPRESSION: No evidence of small-bowel obstruction. Plan Plan of Treatment: Patient is discharged home in stable condition. He is advised to follow-up with his primary care provider within 1 week. He is instructed to take his medications as prescribed. Continue a heart healthy/diabetic diet. Return to the emergency department as needed for concerning symptoms. Time Spent: Greater than 30 Minutes Stroke Is this a Stroke Patient?: No Acute Heart Failure - Is this a Heart Failure Patient?: No
== END 2020-06-16 15:15 | disposition home or self-care (01) | DRG 390 ==
LOC: ER 16:22 → EH 22:42 → 4N 23:32
PROVIDERS: ADMIT Family Medicine; ATTEND Registered Nurse
DX: K56.690 Other partial intestinal obstruction (principal); E11.65 Type 2 diabetes mellitus with hyperglycemia; I10 Essential (primary) hypertension; I25.10 Atherosclerotic heart disease of native coronary artery without angina pectoris; E78.5 Hyperlipidemia, unspecified; K21.9 Gastro-esophageal reflux disease without esophagitis; M19.90 Unspecified osteoarthritis, unspecified site; F43.10 Post-traumatic stress disorder, unspecified; Z90.49 Acquired absence of other specified parts of digestive tract; Z79.899 Other long term (current) drug therapy; Z88.8 Allergy status to other drugs, medicaments and biological substances
CPT/HCPCS: 36415; 71045; 74019; 74177; 74250; 80048; 80053; 81001; 82962; 83036; 83605; 83690; 85025; 85027; 87086; 87088; 87186; 93005; 93010; 96361; 96374; 96375; 99285; C9113; J1170; J1644; J1815; J1885; J2405; J7030; J7120

== ENCOUNTER → 2020-09-01 | Day surgery (SDC) | payer OTHER, MEDICARE ==
[~2020-09-01] MED LIST changes: -KETOROLAC TROMETHAMINE 0.45% 4 DROP/0.4 ML DROPERETTE OD PRN; +PROPOFOL INJ 200 MG/20 ML VIAL IV ONE
--- NOTE | 2020-09-01 09:25 | Operative Report ---
Operative Report DATE OF SURGERY: 09/01/20 Operative Report: The risk, benefits and alternatives of the procedure including the risks of bleeding, perforation requiring surgery have been explained to the patient in detail and informed consent has been obtained. Patient is placed in left, lateral decubital position. Timeout was called. Propofol medication is administered. Rectal examination is done which did not reveal any masses, tears or fissures. An Olympus videoscope was introduced into the patient's rectum. Scope was then carefully advanced all the way to the cecum. Cecum was identified by the usual anatomical landmarks including the ileocecal valve as well as the appendiceal office. Photodocumentation is obtained. Scope was then sequentially pulled back via the various segments of the colon including the ascending colon, hepatic flexure, transverse colon, splenic flexure, descending colon finding to the rectosigmoid portions of the colon. Retroflexion maneuver is performed. PREOPERATIVE DIAGNOSIS: Colorectal cancer screening POSTOPERATIVE DIAGNOSIS: Splenic flexure polyp removed via snare polypectomy and retrieved. Internal hemorrhoids OPERATION: Colonoscopy with snare polypectomy SURGEON: ROCIO SENIOR ANESTHESIA: LMAC TISSUE REMOVED OR ALTERED: As noted above. COMPLICATIONS: None. ESTIMATED BLOOD LOSS: None. INTRAOPERATIVE FINDINGS: As noted above. PROCEDURE: Patient tolerated the procedure well. No immediate postprocedure complications are noted. Patient is discharged in good condition. Discharge date 09/01/2020. Discharge diet: Regular. Discharge activity: Regular. 2 to 3-week follow-up to discuss findings. Patient is instructed call the office or proceed to the emergency room should there be any further problems or questions. Wait on the pathology. 5-year surveillance colonoscopy.
[2020-09-01 10:02] VITALS: BP 140/80
== END ==
LOC: END 07:50
PROVIDERS: ATTEND Internal Medicine Gastroenterology
DX: K63.5 Polyp of colon (principal); K64.8 Other hemorrhoids; K21.9 Gastro-esophageal reflux disease without esophagitis; I10 Essential (primary) hypertension; E11.9 Type 2 diabetes mellitus without complications; Z03.818 Encounter for observation for suspected exposure to other biological agents ruled out; I73.00 Raynaud's syndrome without gangrene; G47.33 Obstructive sleep apnea (adult) (pediatric); G47.419 Narcolepsy without cataplexy; Z79.899 Other long term (current) drug therapy; Z79.82 Long term (current) use of aspirin; Z86.010 Personal history of colon polyps; Z79.4 Long term (current) use of insulin
CPT/HCPCS: 45385; 82962; 87635 ×2; 88305 ×2; 00812; J2704; C9803 ×2; 812